=== PATIENT | male | born 1990 | race Caucasian/White ===

== ENCOUNTER 2017-05-16 20:37 | Emergency (ER) | payer BC, OTHER ==
[2017-05-16 20:45] VITALS: BP 148/75; PULSE 99; RESP 17; TEMP 97.7
--- NOTE | 2017-05-16 20:55 | ED ---
General Adult HPI - General Chief complaint: Skin/Abscess/Foreign Body Stated complaint: poss infection from tattoo Time Seen by Provider: 05/16/17 20:46 Source: patient, RN notes reviewed Mode of arrival: ambulatory Limitations: no limitations - History of Present Illness Initial comments: Patient was 26-year-old male who presents emergency room today with a chief complaint of infection to the left upper arm. He does admit that a serious few small white head spots to area around tattoo that he recently got. Patient states that one of the areas to drain on its own. He sister locally tender and painful. Denies temperature associated symptoms. Patient denies any recent fever, chills, shortness of breath, chest pain, back pain, abdominal pain, nausea or vomiting, numbness or tingling, dysuria or hematuria, constipation or diarrhea, headaches or visual changes, or any other complaints. - Related Data Home Medications Medication Instructions Recorded Confirmed Hydrocodone/Acetaminophen [[place] 1 tab PO BID PRN 07/26/15 11/19/15 7.5-325] Ibuprofen [Motrin] 800 mg PO TID PRN 07/26/15 11/19/15 Lurasidone HCl [Latuda] 1 tab PO DAILY 11/19/15 11/19/15 Previous Rx's Medication Instructions Recorded Clindamycin [Cleocin] 150 mg PO Q6H #28 capsule 11/19/15 Sulfamethox-Tmp 800-160Mg [Bactrim 2 each PO Q12HR #28 tab 11/19/15 Ds] Bacitracin Oint 28.4 gm TOPICAL BID #1 tube 05/16/17 Sulfamethox-Tmp 800-160Mg [Bactrim 1 tab PO Q12HR #20 tab 05/16/17 DS 800-160 mg] Allergies Allergy/AdvReac Type Severity Reaction Status Date / Time No Known Allergies Allergy Verified 11/22/15 14:15 Review of Systems ROS Statement: Those systems with pertinent positive or pertinent negative responses have been documented in the HPI. ROS Other: All systems not noted in ROS Statement are negative. Past Medical History Past Medical History: Asthma, GERD/Reflux History of Any Multi-Drug Resistant Organisms: MRSA Date of last positivie culture/infection: 11/19/15 MDRO Source:: right axilla Past Surgical History: Orthopedic Surgery Additional Past Surgical History / Comment(s): RIGHT KNEE Past Psychological History: Anxiety, Bipolar, Depression Smoking Status: Current every day smoker Past Alcohol Use History: None Reported Past Drug Use History: None Reported General Exam - General Exam Comments Initial Comments: General: The patient is awake and alert, in no distress, and does not appear acutely ill. Eye: Pupils are equal, round and reactive to light, extra-ocular movements are intact. No nystagmus. There is normal conjunctiva bilaterally. No signs of icterus. Ears, nose, mouth and throat: There are moist mucous membranes and no oral lesions. Neck: The neck is supple, there is no tenderness or JVD. Cardiovascular: There is a regular rate and rhythm. No murmur, rub or gallop is appreciated. Respiratory: Lungs are clear to auscultation, respirations are non-labored, breath sounds are equal. No wheezes, stridor, rales, or rhonchi. Musculoskeletal: Normal ROM, no tenderness. Strength 5/5. Sensation intact. Pulses equal bilaterally 2+. Neurological: A&O x 3. CN II-XII intact, There are no obvious motor or sensory deficits. Coordination appears grossly intact. Speech is normal. Skin: He does have 4 small abscesses to the left outer arm. There are white heads centrally. No fluctuant area. Each measuring approximately 1-2 cm. Psychiatric: Cooperative, appropriate mood & affect, normal judgment. Limitations: no limitations Course Vital Signs 05/16/17 20:41 Temperature 97.7 F Pulse Rate 99 Respiratory 17 Rate Blood Pressure 148/75 O2 Sat by Pulse 99 Oximetry Medical Decision Making - Medical Decision Making Patient will be started on antibiotics. Patient will be discharged home advised to return if symptoms increase or worsen. Disposition Clinical Impression: Abscess Disposition: HOME SELF-CARE Condition: Good Instructions: Abscess (ED) Additional Instructions: Please use medication as discussed. Please follow-up with family doctor in the next 2 days of symptoms have not improved. Please return to emergency room if the symptoms increase or worsen or for any other concerns. Prescriptions: Bacitracin Oint 28.4 gm TOPICAL BID #1 tube Sulfamethox-Tmp 800-160Mg [Bactrim DS 800-160 mg] 1 tab PO Q12HR #20 tab Referrals: Moises Fierro DO [Primary Care Provider] - 1-2 days Time of Disposition: 20:53
== END 2017-05-16 21:11 | disposition home or self-care (01) ==
LOC: EC 20:37
DX: L02.414 Cutaneous abscess of left upper limb (principal); F31.9 Bipolar disorder, unspecified; F41.9 Anxiety disorder, unspecified; F17.200 Nicotine dependence, unspecified, uncomplicated; Z86.14 Personal history of Methicillin resistant Staphylococcus aureus infection; Z79.899 Other long term (current) drug therapy
CPT/HCPCS: 99282

== ENCOUNTER 2017-05-21 09:24 | Day surgery (SDC) | payer BC, OTHER ==
[2017-05-17 11:11] VITALS: BMI 39.5
[~2017-05-21 09:24] MED LIST: LACTATED RINGERS 1,000 ML IV SCH
[2017-05-21 10:05] VITALS: RESP 16; TEMP 98
[2017-05-21] MEDS ORDERED: LIDOCAINE 1% 20 ML VIAL (10MG/ML) FOR IV START INTRADERMA ONE (10:12)
[2017-05-21] MEDS ORDERED: fentaNYL (PF) 50 MCG/ML 2 ML AMP ONE (11:19)
[2017-05-21] MEDS ORDERED: PROPOFOL 10 MG/ML 20 ML VIAL IV ONE (11:19)
[2017-05-21] MEDS ORDERED: LIDOCAINE 1% INJ 10MG/ML (20 ML MDV) ONE (11:19)
[2017-05-21] MEDS ORDERED: MIDAZOLAM 2 MG/2 ML VIAL ONE (11:19)
--- NOTE | 2017-05-21 12:12 | P.PCN ---
Date of Procedure: 05/21/17 Procedure(s) Performed: Procedure: 1. Esophagogastroduodenoscopy and biopsy. 2. Total colonoscopy and biopsy. Preoperative diagnosis: Epigastric pain and change in bowel habits. Postoperative diagnosis: 1. Very small sliding hiatal hernia with low-grade distal esophagitis. 2. Mild antral gastritis. 3. Normal colon and terminal ileum. 4. Biopsies obtained from the duodenum, antrum, esophagus as well as the terminal ileum and random colon. Preparation: HalfLytely prep. Sedation: Was provided by anesthesia. Brief clinical history: The patient is a 26-year-old male who is scheduled for this evaluation because of epigastric pain and change in bowel habits over the last year or 2. This evaluation is to assess for inflammatory bowel disease or celiac disease or other pathology Procedure: With the patient on his left lateral decubitus position and after informed consent and adequate sedation, I passed the Olympus-GIF 160 video upper endoscope through cricopharyngeus down the esophagus. GE junction was around 39-40 cm from the incisors and there was a small sliding hiatal hernia. There was a very short superficial distal esophageal erosion terminating at the GE junction, with no ulcers or strictures or any evidence of Flores's esophagus. The endoscope was then passed into the stomach which was insufflated with air and inspected in detail including the retroflex view in the cardia. There was some mottling and erythema in the antrum but no ulcers or erosions. Pyloric channel, duodenal bulb, post bulbar area and descending duodenum appeared within normal limits. I obtained biopsies from the antrum and the esophagus then the endoscope was withdrawn and I then proceeded to do colonoscopy. Perianal area did not show any fissures or fistulas. There were no masses felt on digital rectal examination. The Olympus CFQ 160L video colonoscope was then inserted in the rectum in the usual fashion and advanced to the cecum. I intubated the ileocecal valve and examined the terminal ileum. Terminal ileum and colon appeared healthy with no edema, erythema, friability, ulceration, exudation or spontaneous bleeding. No polyps or diverticular disease was noted. I obtained biopsies from the terminal ileum and randomly from the colon then I retroflexed the endoscope in the rectum before the endoscope was withdrawn. The patient tolerated the procedure well. Plan: The patient was reassured. Will await pathology results. I see no follow -up in the office of keep you updated on his progress.
[2017-05-21 12:36] VITALS: BP 110/73; PULSE 58
== END 2017-05-21 12:56 | disposition home or self-care (01) ==
LOC: ORWHC2ENDO 09:24
DX: K44.9 Diaphragmatic hernia without obstruction or gangrene (principal); R19.4 Change in bowel habit; K21.0 Gastro-esophageal reflux disease with esophagitis; F17.210 Nicotine dependence, cigarettes, uncomplicated; Z79.2 Long term (current) use of antibiotics
CPT/HCPCS: 88305; 88342; 45380; 43239; J2250; J2001; J3010; J2704

== ENCOUNTER 2019-01-15 02:41 | Emergency (ER) | payer OTHER ==
[2019-01-15] MEDS ORDERED: KETOROLAC 30 MG/ML 1 ML VIAL IVP STA (03:33)
[2019-01-15] MEDS ORDERED: MORPHINE SULFATE 4 MG/ML SYRINGE IV STA (03:33)
[2019-01-15 03:54] VITALS: TEMP 97.6
[2019-01-15 04:09] LABS: Basophils # (A) 0.3 k/uL (0-0.2); Basophils % (A) 3 %; Eosinophils # (A) 0.2 k/uL (0-0.7); Eosinophils % (A) 2 %; HCT 44.5 % (39.0-53.0); HGB 14.9 gm/dL (13.0-17.5); Lymphocytes % (A) 24 %; MCH 29.1 pg (25.0-35.0); MCHC 33.4 g/dL (31.0-37.0); MCV 87.2 fL (80.0-100.0); Mean Platelet Volume 7.3; Monocytes # (A) 0.7 k/uL (0-1.0); Monocytes % (A) 6 %; Neutrophils # (A) 7.9 k/uL (1.3-7.7); Neutrophils % (A) 64 %; Platelet Count 291 k/uL (150-450); RDW 13.7 % (11.5-15.5); WBC 12.2 k/uL (3.8-10.6)
[2019-01-15 04:21] LABS: African American GFR (CKD) >90 (>60 ml/min/1.73 sqM); Amylase 45 U/L (30-110); Anion Gap 8 mmol/L; Blood Urea Nitrogen 15 mg/dL (9-20); C Reactive Protein 5.8 mg/L (<10.0); Calcium 9.1 mg/dL (8.4-10.2); Carbon Dioxide 28 mmol/L (22-30); Chloride 103 mmol/L (98-107); Glucose 125 mg/dL (74-99); Potassium 4.5 mmol/L (3.5-5.1); Sodium 139 mmol/L (137-145)
--- NOTE | 2019-01-15 04:37 | XR ---
EXAM: XR Right Shoulder Complete, 2 or More Views CLINICAL HISTORY: ITS.REASON XR Reason: pain TECHNIQUE: Two or more views of the right shoulder. COMPARISON: No relevant prior studies available. FINDINGS: Bones/joints: No acute fracture. No dislocation. Soft tissues: Unremarkable. IMPRESSION: No acute findings.
--- NOTE | 2019-01-15 04:46 | XR ---
EXAM: XR Chest, 2 Views CLINICAL HISTORY: ITS.REASON XR Reason: pain TECHNIQUE: Frontal and lateral views of the chest. COMPARISON: No relevant prior studies available. FINDINGS: Lungs: No consolidation or mass. Pleural space: No effusion. Heart: No cardiomegaly. Mediastinum: Unremarkable. Bones/joints: No acute findings. IMPRESSION: No acute cardiopulmonary process.
--- NOTE | 2019-01-15 04:54 | ED ---
Extremity Problem HPI - General Chief complaint: Extremity Problem,Nontraumatic Stated complaint: Arm Numbness Time Seen by Provider: 01/15/19 03:05 Source: patient Mode of arrival: ambulatory Limitations: no limitations - History of Present Illness Initial comments: This patient is 28-year-old man who presents with 2 distinct complaints. The first complaint is of some right trapezius area pain. He states the pain is been there for number days and does not seem to be getting better . he is not recall having any injury to the area. The patient denies fever or chills. There is no shortness of breath. No cough or hemoptysis. No real neck pain. No neck stiffness. The patient states the pain gets worse when he uses his right arm, and is better when he is resting it. Patient's second complaint is of some right sided dental pain. He notes that it is worse when he tries to chew something. It is aching, constant, without relieving factors. No difficulty with speech or swallowing. No eye or sinus pain MD Complaint: extremity pain, other (Dental pain) -: days(s) Location: right, upper extremity History of Same: No -: Yes myalgia Radiation: none Quality: aching Consistency: constant Improves with: nothing Worsens with: other (Movement) Associated Symptoms: denies other symptoms - Related Data Previous Rx's Medication Instructions Recorded Bacitracin Oint 28.4 gm TOPICAL BID #1 tube 05/16/17 Sulfamethox-Tmp 800-160Mg [Bactrim 1 tab PO Q12HR #20 tab 05/16/17 DS 800-160 mg] Ibuprofen 800 mg PO TID #20 tablet 01/15/19 Methocarbamol [Robaxin-750] 750 mg PO TID PRN #30 tablet 01/15/19 Penicillin V Potassium [Pen Vee K] 500 mg PO Q6H #28 tablet 01/15/19 Allergies Allergy/AdvReac Type Severity Reaction Status Date / Time No Known Allergies Allergy Verified 11/22/17 16:10 Review of Systems ROS Statement: Those systems with pertinent positive or pertinent negative responses have been documented in the HPI. ROS Other: All systems not noted in ROS Statement are negative. Constitutional: Denies: fever, chills, weakness Eyes: Denies: eye pain, vision change ENT: Reports: dental pain. Denies: ear pain, throat pain, congestion Respiratory: Denies: cough, dyspnea Cardiovascular: Denies: chest pain, palpitations, edema Gastrointestinal: Denies: abdominal pain, nausea, vomiting Musculoskeletal: Reports: myalgia. Denies: back pain Skin: Denies: rash Neurological: Denies: headache, weakness, numbness, paresthesias Past Medical History Past Medical History: Asthma, GERD/Reflux History of Any Multi-Drug Resistant Organisms: MRSA Date of last positivie culture/infection: 11/19/15 MDRO Source:: right axilla Past Surgical History: Adenoidectomy, Orthopedic Surgery, Tonsillectomy Additional Past Surgical History / Comment(s): RIGHT KNEE Past Psychological History: Anxiety, Bipolar, Depression Smoking Status: Never smoker Past Alcohol Use History: Occasional Past Drug Use History: None Reported General Exam Limitations: no limitations General appearance: alert, in no apparent distress Head exam: Present: atraumatic, normocephalic Eye exam: Present: normal appearance. Absent: scleral icterus, conjunctival injection ENT exam: Present: mucous membranes moist, other (Patient has impacted wisdom tooth.) Neck exam: Present: normal inspection, full ROM Respiratory exam: Present: normal lung sounds bilaterally. Absent: respiratory distress, wheezes, rales, rhonchi, stridor Cardiovascular Exam: Present: regular rate, normal rhythm, normal heart sounds. Absent: systolic murmur, diastolic murmur, rubs, gallop GI/Abdominal exam: Present: soft. Absent: distended, tenderness, guarding, rebound, rigid, mass Back exam: Present: normal inspection, tenderness (Right trapezius muscle), muscle spasm (Right trapezius muscle). Absent: CVA tenderness (R), CVA tenderness (L) Neurological exam: Present: alert, oriented X3. Absent: motor sensory deficit Skin exam: Present: warm, dry, intact, normal color. Absent: rash Course Vital Signs 01/15/19 01/15/19 02:49 05:12 Temperature 97.6 F Pulse Rate 92 78 Respiratory 18 16 Rate Blood Pressure 163/106 142/84 O2 Sat by Pulse 100 98 Oximetry Medical Decision Making - Lab Data Result diagrams: 01/15/19 04:00 01/15/19 04:00 Lab Results 01/15/19 01/15/19 01/15/19 Range/Units 04:00 04:00 04:00 WBC 12.2 H (3.8-10.6) k/uL RBC 5.10 (4.30-5.90) m/uL Hgb 14.9 (13.0-17.5) gm/dL Hct 44.5 (39.0-53.0) % MCV 87.2 (80.0-100.0) fL MCH 29.1 (25.0-35.0) pg MCHC 33.4 (31.0-37.0) g/dL RDW 13.7 (11.5-15.5) % Plt Count 291 (150-450) k/uL Neutrophils % 64 % Lymphocytes % 24 % Monocytes % 6 % Eosinophils % 2 % Basophils % 3 % Neutrophils # 7.9 H (1.3-7.7) k/uL Lymphocytes # 3.0 (1.0-4.8) k/uL Monocytes # 0.7 (0-1.0) k/uL Eosinophils # 0.2 (0-0.7) k/uL Basophils # 0.3 H (0-0.2) k/uL D-Dimer 0.26 (<0.60) mg/L FEU Sodium 139 (137-145) mmol/L Potassium 4.5 (3.5-5.1) mmol/L Chloride 103 (98-107) mmol/L Carbon Dioxide 28 (22-30) mmol/L Anion Gap 8 mmol/L BUN 15 (9-20) mg/dL Creatinine 0.75 (0.66-1.25) mg/dL Est GFR (CKD-EPI)AfAm >90 (>60 ml/min/1.73 sqM) Est GFR (CKD-EPI)NonAf >90 (>60 ml/min/1.73 sqM) Glucose 125 H (74-99) mg/dL Calcium 9.1 (8.4-10.2) mg/dL C-Reactive Protein 5.8 (<10.0) mg/L Amylase 45 (30-110) U/L Lipase 78 (23-300) U/L Disposition Clinical Impression: Strain of shoulder, right, Impacted tooth Disposition: HOME SELF-CARE Condition: Good Instructions (If sedation given, give patient instructions): Muscle Strain (ED), Toothache (ED) Prescriptions: Ibuprofen 800 mg PO TID #20 tablet Penicillin V Potassium [Pen Vee K] 500 mg PO Q6H #28 tablet Methocarbamol [Robaxin-750] 750 mg PO TID PRN #30 tablet PRN Reason: pain Is patient prescribed a controlled substance at d/c from ED?: No Referrals: Moises Fierro DO [Primary Care Provider] - 1-2 days
[2019-01-15 05:13] VITALS: BP 142/84; PULSE 78; RESP 16
== END 2019-01-15 05:13 | disposition home or self-care (01) ==
LOC: EC 02:41
DX: S46.811A Strain of other muscles, fascia and tendons at shoulder and upper arm level, right arm, initial encounter (principal); K01.1 Impacted teeth; Z86.14 Personal history of Methicillin resistant Staphylococcus aureus infection
CPT/HCPCS: 36415; 85379; 80048; 82150; 83690; 85025; 86140; 73030; 71046; 99284; 96374; J2270

== ENCOUNTER 2019-04-11 13:22 | Emergency (ER) | payer BC ==
[2019-04-11 13:26] VITALS: TEMP 97.5
[2019-04-11] MEDS ORDERED: SODIUM CHLORIDE 0.9% 1,000 ML IV STA (14:54)
[2019-04-11] MEDS ORDERED: KETOROLAC 30 MG/ML 1 ML VIAL IVP STA (14:54)
--- NOTE | 2019-04-11 15:09 | ED ---
Abdominal Pain HPI - General Chief Complaint: Abdominal Pain Stated Complaint: Back and right side pain Time Seen by Provider: 04/11/19 14:25 Source: patient Mode of arrival: ambulatory Limitations: no limitations - History of Present Illness Initial Comments: Patient is a 28-year-old male presenting to the emergency Department with complaints of right upper quadrant pain has been intermittent for the past week. Patient states he noticed this approximately 5 days ago. Patient describes the pain as coming and going, seems to be worse in the morning. He describes it as sharp at times with some radiation into his back. Patient denies fever, chills, vomiting. Patient admits to mild nausea at times. Patient also has diarrhea intermittently however he states he has had this for months. The past 24 hours the pain has increased. Patient has tried any [id number] pain medicines. Patient denies any abdominal surgeries. Patient has no urinary complaints, last bowel movement was today and has been normal. There are no other complaints at this time. Upon arrival to the ER, vital signs are stable. - Related Data Previous Rx's Medication Instructions Recorded Bacitracin Oint 28.4 gm TOPICAL BID #1 tube 05/16/17 Sulfamethox-Tmp 800-160Mg [Bactrim 1 tab PO Q12HR #20 tab 05/16/17 DS 800-160 mg] Ibuprofen 800 mg PO TID #20 tablet 01/15/19 Methocarbamol [Robaxin-750] 750 mg PO TID PRN #30 tablet 01/15/19 Penicillin V Potassium [Pen Vee K] 500 mg PO Q6H #28 tablet 01/15/19 Allergies Allergy/AdvReac Type Severity Reaction Status Date / Time No Known Allergies Allergy Verified 11/22/17 16:10 Review of Systems ROS Statement: Those systems with pertinent positive or pertinent negative responses have been documented in the HPI. ROS Other: All systems not noted in ROS Statement are negative. Past Medical History Past Medical History: Asthma, GERD/Reflux History of Any Multi-Drug Resistant Organisms: MRSA Date of last positivie culture/infection: 11/19/15 MDRO Source:: right axilla Past Surgical History: Adenoidectomy, Orthopedic Surgery, Tonsillectomy Additional Past Surgical History / Comment(s): RIGHT KNEE Past Psychological History: Anxiety, Bipolar, Depression Smoking Status: Former smoker Past Alcohol Use History: Occasional Past Drug Use History: None Reported General Exam - General Exam Comments Initial Comments: GENERAL: Well-appearing, well-nourished and in no acute distress. HEAD: Atraumatic, normocephalic. EYES: Pupils equal round and reactive to light, extraocular movements intact, sclera anicteric, conjunctiva are normal. ENT: TMs normal, nares patent, oropharynx clear without exudates. Moist mucous membranes. NECK: Normal range of motion, supple without lymphadenopathy or JVD. LUNGS: Breath sounds clear to auscultation bilaterally and equal. No wheezes rales or rhonchi. HEART: Regular rate and rhythm without murmurs, rubs or gallops. ABDOMEN: Tender to palpation in the right upper quadrant. Soft, normoactive bowel sounds. No guarding, no rebound. No masses appreciated. No flank pain. : Deferred EXTREMITIES: Normal range of motion, no pitting or edema. No clubbing or cyanosis. NEUROLOGICAL: Cranial nerves II through XII grossly intact. Normal speech, normal gait. PSYCH: Normal mood, normal affect. SKIN: Warm, Dry, normal turgor, no rashes or lesions noted. Limitations: no limitations Course Vital Signs 04/11/19 04/11/19 13:24 16:34 Temperature 97.5 F L Pulse Rate 77 72 Respiratory 16 18 Rate Blood Pressure 141/83 114/74 O2 Sat by Pulse 95 99 Oximetry Medical Decision Making - Medical Decision Making Patient is a 28-year-old male presenting with right upper quadrant pain intermittently, for approximately 5 days. Vital signs are stable, afebrile. La bs show slight leukocytosis at 16.1, rest of labs are normal. Lactic acid is 1.2. Urine is normal. Gallbladder ultrasound reveals no gallstones or dilated ducts. Borderline gallbladder wall thickening. No free fluid. Chest x-ray reveals no acute abnormalities. Patient was given fluids and Toradol and reports improvement in symptoms. I discussed with patient that his symptoms could be coming from his gallbladder and recommended outpatient follow-up. Patient is in agreement with this plan of care. Patient admits to eating fatty foods, including whole pizza yesterday. We discussed limiting his fat intake and patient will follow up with his PCP. Patient is stable for discharge at thi s time. He is in agreement with this plan of care. Return parameters were discussed with the patient and he verbalized understanding. - Lab Data Result diagrams: 04/11/19 15:15 04/11/19 15:15 Lab Results 04/11/19 04/11/19 04/11/19 Range/Units 15:15 15:15 15:15 WBC 16.1 H (3.8-10.6) k/uL RBC 5.11 (4.30-5.90) m/uL Hgb 15.3 (13.0-17.5) gm/dL Hct 45.4 (39.0-53.0) % MCV 89.0 (80.0-100.0) fL MCH 30.0 (25.0-35.0) pg MCHC 33.7 (31.0-37.0) g/dL RDW 12.9 (11.5-15.5) % Plt Count 324 (150-450) k/uL Neutrophils % 72 % Lymphocytes % 22 % Monocytes % 4 % Eosinophils % 1 % Basophils % 0 % Neutrophils # 11.7 H (1.3-7.7) k/uL Lymphocytes # 3.5 (1.0-4.8) k/uL Monocytes # 0.7 (0-1.0) k/uL Eosinophils # 0.1 (0-0.7) k/uL Basophils # 0.0 (0-0.2) k/uL PT (9.0-12.0) sec INR (<1.2) APTT (22.0-30.0) sec Sodium 138 (137-145) mmol/L Potassium 4.1 (3.5-5.1) mmol/L Chloride 102 (98-107) mmol/L Carbon Dioxide 29 (22-30) mmol/L Anion Gap 7 mmol/L BUN 15 (9-20) mg/dL Creatinine 0.71 (0.66-1.25) mg/dL Est GFR (CKD-EPI)AfAm >90 (>60 ml/min/1.73 sqM) Est GFR (CKD-EPI)NonAf >90 (>60 ml/min/1.73 sqM) Glucose 104 H (74-99) mg/dL Plasma Lactic Acid [place] (0.7-2.0) mmol/L Calcium 9.1 (8.4-10.2) mg/dL Total Bilirubin 0.4 (0.2-1.3) mg/dL AST 18 (17-59) U/L ALT 27 (21-72) U/L Alkaline Phosphatase 80 (38-126) U/L Total Protein 6.9 (6.3-8.2) g/dL Albumin 4.2 (3.5-5.0) g/dL Amylase 41 (30-110) U/L Lipase 90 (23-300) U/L Urine Color Yellow Urine Appearance Clear (Clear) Urine pH 5.5 (5.0-8.0) Ur Specific [place] 1.031 (1.001-1.035) Urine Protein Trace H (Negative) Urine Glucose (UA) Negative (Negative) Urine Ketones Negative (Negative) Urine Blood Negative (Negative) Urine Nitrite Negative (Negative) Urine Bilirubin Negative (Negative) Urine Urobilinogen 2.0 (<2.0) mg/dL Ur Leukocyte Esterase Negative (Negative) 04/11/19 04/11/19 Range/Units 15:15 15:15 WBC (3.8-10.6) k/uL RBC (4.30-5.90) m/uL Hgb (13.0-17.5) gm/dL Hct (39.0-53.0) % MCV (80.0-100.0) fL MCH (25.0-35.0) pg MCHC (31.0-37.0) g/dL RDW (11.5-15.5) % Plt Count (150-450) k/uL Neutrophils % % Lymphocytes % % Monocytes % % Eosinophils % % Basophils % % Neutrophils # (1.3-7.7) k/uL Lymphocytes # (1.0-4.8) k/uL Monocytes # (0-1.0) k/uL Eosinophils # (0-0.7) k/uL Basophils # (0-0.2) k/uL PT 11.3 (9.0-12.0) sec INR 1.1 (<1.2) APTT 24.7 (22.0-30.0) sec Sodium (137-145) mmol/L Potassium (3.5-5.1) mmol/L Chloride (98-107) mmol/L Carbon Dioxide (22-30) mmol/L Anion Gap mmol/L BUN (9-20) mg/dL Creatinine (0.66-1.25) mg/dL Est GFR (CKD-EPI)AfAm (>60 ml/min/1.73 sqM) Est GFR (CKD-EPI)NonAf (>60 ml/min/1.73 sqM) Glucose (74-99) mg/dL Plasma Lactic Acid [place] 1.2 (0.7-2.0) mmol/L Calcium (8.4-10.2) mg/dL Total Bilirubin (0.2-1.3) mg/dL AST (17-59) U/L ALT (21-72) U/L Alkaline Phosphatase (38-126) U/L Total Protein (6.3-8.2) g/dL Albumin (3.5-5.0) g/dL Amylase (30-110) U/L Lipase (23-300) U/L Urine Color Urine Appearance (Clear) Urine pH (5.0-8.0) Ur Specific [place] (1.001-1.035) Urine Protein (Negative) Urine Glucose (UA) (Negative) Urine Ketones (Negative) Urine Blood (Negative) Urine Nitrite (Negative) Urine Bilirubin (Negative) Urine Urobilinogen (<2.0) mg/dL Ur Leukocyte Esterase (Negative) Disposition Clinical Impression: Abdominal pain Disposition: HOME SELF-CARE Condition: Stable Instructions (If sedation given, give patient instructions): Abdominal Pain (ED) Additional Instructions: Please return to the Emergency Department if symptoms worsen or any other concerns. Follow-up with PCP as discussed. May alternate between Tylenol and Motrin for discomfort. Follow a BRAT diet. Is patient prescribed a controlled substance at d/c from ED?: No Referrals: Moises Fierro DO [Primary Care Provider] - 1-2 days
[2019-04-11 15:31] LABS: Appearance,Urine Clear (Clear); Bilirubin,Urine Negative (Negative); Blood,Urine Negative (Negative); Color,Urine Yellow; Glucose,Urine (UA) Negative (Negative); Ketones,Urine Negative (Negative); Leukocyte Esterase,Urine Negative (Negative); Nitrite,Urine Negative (Negative); PH, Urine 5.5 (5.0-8.0); Protein,Urine Trace (Negative); Specific Gravity,Urine 1.031 (1.001-1.035)
[2019-04-11 15:33] LABS: Basophils % (A) 0 %; Eosinophils # (A) 0.1 k/uL (0-0.7); Eosinophils % (A) 1 %; HCT 45.4 % (39.0-53.0); HGB 15.3 gm/dL (13.0-17.5); Lymphocytes # (A) 3.5 k/uL (1.0-4.8); Lymphocytes % (A) 22 %; MCHC 33.7 g/dL (31.0-37.0); Mean Platelet Volume 8.3; Monocytes # (A) 0.7 k/uL (0-1.0); Monocytes % (A) 4 %; Neutrophils # (A) 11.7 k/uL (1.3-7.7); Neutrophils % (A) 72 %; Platelet Count 324 k/uL (150-450); RBC 5.11 m/uL (4.30-5.90); RDW 12.9 % (11.5-15.5); WBC 16.1 k/uL (3.8-10.6)
[2019-04-11 15:43] LABS: INR 1.1 (<1.2); Partial Thromboplastin Time 24.7 sec (22.0-30.0); Prothrombin Time 11.3 sec (9.0-12.0)
[2019-04-11 16:03] LABS: ALT 27 U/L (21-72); AST 18 U/L (17-59); African American GFR (CKD) >90 (>60 ml/min/1.73 sqM); Albumin 4.2 g/dL (3.5-5.0); Alkaline Phosphatase 80 U/L (38-126); Amylase 41 U/L (30-110); Anion Gap 7 mmol/L; Blood Urea Nitrogen 15 mg/dL (9-20); Calcium 9.1 mg/dL (8.4-10.2); Carbon Dioxide 29 mmol/L (22-30); Chloride 102 mmol/L (98-107); Glucose 104 mg/dL (74-99); Non-African American GFR(CKD) >90 (>60 ml/min/1.73 sqM); Potassium 4.1 mmol/L (3.5-5.1); Sodium 138 mmol/L (137-145); Total Bilirubin 0.4 mg/dL (0.2-1.3); Total Protein 6.9 g/dL (6.3-8.2)
[2019-04-11 16:35] VITALS: BP 114/74; PULSE 72; RESP 18
--- NOTE | 2019-04-11 16:36 | US ---
EXAMINATION TYPE: US gallbladder DATE OF EXAM: 04/11/2019 COMPARISON: NONE CLINICAL HISTORY: RUQ pain. RUQ pain and epigastric pain for 1 week EXAM MEASUREMENTS: Liver Length: 14.5 cm Gallbladder Wall: 0.2 cm CBD: 0.3 cm Right Kidney: 11.7 x 5.6 x 5.4 cm Technical limitations due to patient's body habitus and large amount of overlying bowel content Pancreas: Obscured by bowel gas Liver: attenuating, heterogeneous Gallbladder: no evidence of stones Evidence for sonographic Garcia's sign: no CBD: limited evaluation Right Kidney: no evidence of hydronephrosis IMPRESSION: No gallstones or dilated ducts. Borderline gallbladder wall thickening. No free fluid.
--- NOTE | 2019-04-11 17:20 | XR ---
EXAMINATION TYPE: XR chest 2V DATE OF EXAM: 04/11/2019 COMPARISON: 01/15/2019 HISTORY: Right upper quadrant pain TECHNIQUE: Frontal and lateral views of the chest are obtained. FINDINGS: Heart and mediastinum are normal. Lungs are clear. Diaphragm is normal. Bony thorax appear s normal. IMPRESSION: Normal chest. No change.
== END 2019-04-11 18:15 | disposition home or self-care (01) ==
LOC: EC 13:22
DX: R10.11 Right upper quadrant pain (principal); D72.829 Elevated white blood cell count, unspecified; K82.8 Other specified diseases of gallbladder; M54.9 Dorsalgia, unspecified; R11.0 Nausea; R19.7 Diarrhea, unspecified; Z87.891 Personal history of nicotine dependence; Z86.14 Personal history of Methicillin resistant Staphylococcus aureus infection; Z87.19 Personal history of other diseases of the digestive system
CPT/HCPCS: 36415; 80053; 82150; 83605; 83690; 85025; 85610; 85730; 81003; 71046; 76705; 99284; 96374; 96361 ×2; J1885

== ENCOUNTER → 2020-02-13 | Outpatient (CLI) | payer BC | END | disposition home or self-care (01) | LOC: LABWHC1 09:55 | PROVIDERS: ATTEND Family Medicine | DX: Z20.828 Contact with and (suspected) exposure to other viral communicable diseases (principal) | CPT/HCPCS: U0003; C9803 ==

== ENCOUNTER 2021-01-25 19:46 | Emergency (ER) | payer BC ==
[2021-01-25 20:10] VITALS: TEMP 98.4
[2021-01-25] MEDS ORDERED: SODIUM CHLORIDE 0.9% 1,000 ML IV STA (20:20)
[2021-01-25] MEDS ORDERED: KETOROLAC 15 MG/ML 1 ML VIAL IVP STA (20:20)
[2021-01-25] MEDS ORDERED: HYDROmorphone 0.5 MG/0.5 ML SYRINGE IVP STA (20:20)
[2021-01-25] MEDS ORDERED: ONDANSETRON 4 MG/2 ML VIAL IVP STA ×2 (20:20→22:53)
[2021-01-25] MEDS ORDERED: SODIUM CHLORIDE 0.9% 500 ML 500 ML IV STA (20:20)
--- NOTE | 2021-01-25 20:29 | ED ---
Abdominal Pain HPI - General Chief Complaint: Abdominal Pain Stated Complaint: Groin Pain Time Seen by Provider: 01/25/21 20:16 Source: patient, RN notes reviewed Mode of arrival: ambulatory Limitations: no limitations - History of Present Illness Initial Comments: This a 30-year-old male presents emergency Department chief complaint of left lower quadrant abdominal pain. Patient states started a few days ago. He does radiate to his left back. Patient denies any vomiting states she's had slight nausea no diarrhea no constipation no definite dysuria or urinary frequency. Patient has no history kidney stones OR diverticulitis no prior abdominal surgeries no fevers. - Related Data Previous Rx's Medication Instructions Recorded Bacitracin Zinc Oint 28.4 gm TOPICAL BID #1 tube 05/16/17 Sulfamethox-Tmp 800-160Mg [Bactrim 1 tab PO Q12HR #20 tab 05/16/17 DS 800-160 mg] Ibuprofen 800 mg PO TID #20 tablet 01/15/19 Methocarbamol [Robaxin-750] 750 mg PO TID PRN #30 tablet 01/15/19 Penicillin V Potassium [Pen Vee K] 500 mg PO Q6H #28 tablet 01/15/19 Amoxicillin/Potassium Clav 1 tab PO Q12HR #20 tab 01/25/21 [Augmentin 875-125 Tablet] Allergies Allergy/AdvReac Type Severity Reaction Status Date / Time No Known Allergies Allergy Verified 01/25/21 20:10 Review of Systems ROS Statement: Those systems with pertinent positive or pertinent negative responses have been documented in the HPI. ROS Other: All systems not noted in ROS Statement are negative. Past Medical History Past Medical History: Asthma, GERD/Reflux History of Any Multi-Drug Resistant Organisms: MRSA Date of last positivie culture/infection: 11/19/15 MDRO Source:: right axilla Past Surgical History: Adenoidectomy, Orthopedic Surgery, Tonsillectomy Additional Past Surgical History / Comment(s): RIGHT KNEE Past Psychological History: Anxiety, Bipolar, Depression Smoking Status: Vaper Past Alcohol Use History: Occasional Past Drug Use History: None Reported General Exam Limitations: no limitations General appearance: alert, in no apparent distress Head exam: Present: atraumatic, normocephalic, normal inspection Eye exam: Present: normal appearance, PERRL, EOMI. Absent: scleral icterus, conjunctival injection, periorbital swelling ENT exam: Present: normal exam, normal oropharynx, mucous membranes moist Neck exam: Present: normal inspection, full ROM. Absent: tenderness, meningismus, lymphadenopathy Respiratory exam: Present: normal lung sounds bilaterally. Absent: respiratory distress, wheezes, rales, rhonchi, stridor Cardiovascular Exam: Present: regular rate, normal rhythm, normal heart sounds. Absent: systolic murmur, diastolic murmur, rubs, gallop, clicks GI/Abdominal exam: Present: soft, tenderness (Left lower quadrant), normal bowel sounds. Absent: distended, guarding, rebound, rigid Back exam: Present: CVA tenderness (L). Absent: CVA tenderness (R) Neurological exam: Present: alert, oriented X3 Course Vital Signs 01/25/21 20:05 Temperature 98.4 F Pulse Rate 84 Respiratory 20 Rate Blood Pressure 125/88 O2 Sat by Pulse 99 Oximetry Medical Decision Making - Medical Decision Making CT shows evidence of diverticulitis. Patient we discharged on clear liquid diet, Augmentin return parameters were discussed. - Lab Data Result diagrams: 01/25/21 20:25 01/25/21 20:25 Lab Results 01/25/21 01/25/21 01/25/21 Range/Units 20:25 20:25 20:25 WBC 12.3 H (3.8-10.6) k/uL RBC 5.17 (4.30-5.90) m/uL Hgb 15.3 (13.0-17.5) gm/dL Hct 46.3 (39.0-53.0) % MCV 89.6 (80.0-100.0) fL MCH 29.5 (25.0-35.0) pg MCHC 33.0 (31.0-37.0) g/dL RDW 12.8 (11.5-15.5) % Plt Count 312 (150-450) k/uL MPV 8.4 Neutrophils % 67 % Lymphocytes % 24 % Monocytes % 5 % Eosinophils % 3 % Basophils % 1 % Neutrophils # 8.3 H (1.3-7.7) k/uL Lymphocytes # 2.9 (1.0-4.8) k/uL Monocytes # 0.6 (0-1.0) k/uL Eosinophils # 0.3 (0-0.7) k/uL Basophils # 0.1 (0-0.2) k/uL Sodium 137 (137-145) mmol/L Potassium 4.0 (3.5-5.1) mmol/L Chloride 103 (98-107) mmol/L Carbon Dioxide 27 (22-30) mmol/L Anion Gap 7 mmol/L BUN 11 (9-20) mg/dL Creatinine 0.75 (0.66-1.25) mg/dL Est GFR (CKD-EPI)AfAm >90 (>60 ml/min/1.73 sqM) Est GFR (CKD-EPI)NonAf >90 (>60 ml/min/1.73 sqM) Glucose 91 (74-99) mg/dL Plasma Lactic Acid [place] (0.7-2.0) mmol/L Calcium 9.2 (8.4-10.2) mg/dL Total Bilirubin 0.4 (0.2-1.3) mg/dL AST 25 (17-59) U/L ALT 18 (4-49) U/L Alkaline Phosphatase 88 (38-126) U/L Total Protein 7.0 (6.3-8.2) g/dL Albumin 4.1 (3.5-5.0) g/dL Amylase 43 (30-110) U/L Lipase 97 (23-300) U/L Urine Color Light Yellow Urine Appearance Clear (Clear) Urine pH 6.5 (5.0-8.0) Ur Specific [place] 1.015 (1.001-1.035) Urine Protein Negative (Negative) Urine Glucose (UA) Negative (Negative) Urine Ketones Negative (Negative) Urine Blood Negative (Negative) Urine Nitrite Negative (Negative) Urine Bilirubin Negative (Negative) Urine Urobilinogen <2.0 (<2.0) mg/dL Ur Leukocyte Esterase Small H (Negative) Urine RBC <1 (0-5) /hpf Urine WBC 1 (0-5) /hpf Urine Bacteria Rare H (None) /hpf Urine Mucus Rare H (None) /hpf 01/25/21 Range/Units 20:25 WBC (3.8-10.6) k/uL RBC (4.30-5.90) m/uL Hgb (13.0-17.5) gm/dL Hct (39.0-53.0) % MCV (80.0-100.0) fL MCH (25.0-35.0) pg MCHC (31.0-37.0) g/dL RDW (11.5-15.5) % Plt Count (150-450) k/uL MPV Neutrophils % % Lymphocytes % % Monocytes % % Eosinophils % % Basophils % % Neutrophils # (1.3-7.7) k/uL Lymphocytes # (1.0-4.8) k/uL Monocytes # (0-1.0) k/uL Eosinophils # (0-0.7) k/uL Basophils # (0-0.2) k/uL Sodium (137-145) mmol/L Potassium (3.5-5.1) mmol/L Chloride (98-107) mmol/L Carbon Dioxide (22-30) mmol/L Anion Gap mmol/L BUN (9-20) mg/dL Creatinine (0.66-1.25) mg/dL Est GFR (CKD-EPI)AfAm (>60 ml/min/1.73 sqM) Est GFR (CKD-EPI)NonAf (>60 ml/min/1.73 sqM) Glucose (74-99) mg/dL Plasma Lactic Acid [place] 0.9 (0.7-2.0) mmol/L Calcium (8.4-10.2) mg/dL Total Bilirubin (0.2-1.3) mg/dL AST (17-59) U/L ALT (4-49) U/L Alkaline Phosphatase (38-126) U/L Total Protein (6.3-8.2) g/dL Albumin (3.5-5.0) g/dL Amylase (30-110) U/L Lipase (23-300) U/L Urine Color Urine Appearance (Clear) Urine pH (5.0-8.0) Ur Specific [place] (1.001-1.035) Urine Protein (Negative) Urine Glucose (UA) (Negative) Urine Ketones (Negative) Urine Blood (Negative) Urine Nitrite (Negative) Urine Bilirubin (Negative) Urine Urobilinogen (<2.0) mg/dL Ur Leukocyte Esterase (Negative) Urine RBC (0-5) /hpf Urine WBC (0-5) /hpf Urine Bacteria (None) /hpf Urine Mucus (None) /hpf Disposition Clinical Impression: Diverticulitis Disposition: HOME SELF-CARE Condition: Stable Instructions (If sedation given, give patient instructions): Diverticulitis Diet (ED), Diverticulitis (ED) Additional Instructions: Please return to the Emergency Department if symptoms worsen or any other concerns. Prescriptions: Amoxicillin/Potassium Clav [Augmentin 875-125 Tablet] 1 tab PO Q12HR #20 tab Is patient prescribed a controlled substance at d/c from ED?: No Referrals: Moises Fierro DO [Primary Care Provider] - 1-2 days Time of Disposition: 22:41
[2021-01-25 20:44] LABS: Basophils # (A) 0.1 k/uL (0-0.2); Basophils % (A) 1 %; Eosinophils # (A) 0.3 k/uL (0-0.7); Eosinophils % (A) 3 %; HCT 46.3 % (39.0-53.0); HGB 15.3 gm/dL (13.0-17.5); Lymphocytes # (A) 2.9 k/uL (1.0-4.8); Lymphocytes % (A) 24 %; MCH 29.5 pg (25.0-35.0); MCV 89.6 fL (80.0-100.0); Mean Platelet Volume 8.4; Monocytes # (A) 0.6 k/uL (0-1.0); Monocytes % (A) 5 %; Neutrophils # (A) 8.3 k/uL (1.3-7.7); Neutrophils % (A) 67 %; Platelet Count 312 k/uL (150-450); RBC 5.17 m/uL (4.30-5.90); RDW 12.8 % (11.5-15.5); WBC 12.3 k/uL (3.8-10.6)
[2021-01-25 20:55] LABS: ALT 18 U/L (4-49); AST 25 U/L (17-59); African American GFR (CKD) >90 (>60 ml/min/1.73 sqM); Albumin 4.1 g/dL (3.5-5.0); Alkaline Phosphatase 88 U/L (38-126); Amylase 43 U/L (30-110); Anion Gap 7 mmol/L; Blood Urea Nitrogen 11 mg/dL (9-20); Calcium 9.2 mg/dL (8.4-10.2); Carbon Dioxide 27 mmol/L (22-30); Chloride 103 mmol/L (98-107); Glucose 91 mg/dL (74-99); Lipase 97 U/L (23-300); Non-African American GFR(CKD) >90 (>60 ml/min/1.73 sqM); Sodium 137 mmol/L (137-145); Total Bilirubin 0.4 mg/dL (0.2-1.3)
[2021-01-25 21:23] LABS: Appearance,Urine Clear (Clear); Bacteria,Urine Rare /hpf; Bilirubin,Urine Negative (Negative); Blood,Urine Negative (Negative); Color,Urine Light Yellow; Glucose,Urine (UA) Negative (Negative); Ketones,Urine Negative (Negative); Leukocyte Esterase,Urine Small (Negative); Mucus,Urine Rare /hpf; Nitrite,Urine Negative (Negative); PH, Urine 6.5 (5.0-8.0); Protein,Urine Negative (Negative); RBC,Urine <1 /hpf (0-5); Specific Gravity,Urine 1.015 (1.001-1.035); Urobilinogen,Urine <2.0 mg/dL (<2.0); WBC,Urine 1 /hpf (0-5)
--- NOTE | 2021-01-25 22:36 | CT ---
EXAMINATION TYPE: CT abdomen pelvis w con DATE OF EXAM: 01/25/2021 COMPARISON: None HISTORY: groin pain CT DLP: 2068.9 mGycm Automated exposure control for dose reduction was used. CONTRAST: Performed with IV Contrast, patient injected with 100 mL of Isovue 300. The lung bases are clear. There is no pleural effusion. Heart size is normal. There is no pericardial effusion. Liver spleen pancreas gallbladder stomach appear intact. The bile ducts are not dilated. There is no adrenal mass. Kidneys show satisfactory contrast opacification. There is no hydronephrosi s. Delayed images show normal renal excretion. Ureters are not dilated. There is no retroperitoneal a denopathy. Bladder distends smoothly. There is no inguinal hernia. There is no free fluid in the pelv is. Appendix not clearly seen. There is no sign of thickened appendix. There are some sigmoid diverticula. There is fat stranding on the posterior aspect of the mid sigmoid colon. The lumbar vertebra have normal alignment. Posterior elements are intact. There is no compression fra cture. Bony pelvis is intact. Hip joints are intact. IMPRESSION: There is some sigmoid diverticulosis and some focal sigmoid diverticulitis. No renal stone or obstruction. Appendix not seen.
[2021-01-25] MEDS ORDERED: cefTRIAXone IN SWFI 1,000 MG/10 ML SYRINGE IVP STA (22:40)
[2021-01-25] MEDS ORDERED: ONDANSETRON 4 MG ODT STARTER PACK 2 TAB BTL PO STA (22:40)
[2021-01-25] MEDS ORDERED: ACET/COD 300 MG/30 MG STARTER PACK 6 TAB BTL PO STA (22:40)
[2021-01-25 23:03] VITALS: BP 122/70; PULSE 80; RESP 18
== END 2021-01-25 23:14 | disposition home or self-care (01) ==
LOC: EC 19:46
DX: K57.32 Diverticulitis of large intestine without perforation or abscess without bleeding (principal); K21.9 Gastro-esophageal reflux disease without esophagitis; J45.909 Unspecified asthma, uncomplicated; F41.9 Anxiety disorder, unspecified; F31.9 Bipolar disorder, unspecified; F17.290 Nicotine dependence, other tobacco product, uncomplicated; Z90.89 Acquired absence of other organs
CPT/HCPCS: 99284; 96374; 96375 ×3; 96376; 96361; 36415; 80053; 82150; 83605; 83690; 85025; 81001; 74177; J2405; J0696; J1885; S0119; J1170; Q9967

== ENCOUNTER → 2021-09-08 | Outpatient (CLI) | payer BC ==
--- NOTE | 2021-09-08 17:48 | CONS ---
CONSULTATION DATE OF SERVICE: 09/08/2021 This 31-year-old gentleman has been evaluated in [facility] for possible obstructive sleep apnea-hypopnea syndrome. HISTORY OF PRESENT ILLNESS/SLEEP-WAKE EVALUATION: Patient's usual sleep schedule on weekdays is from 10 p.m. to 5:30 a.m. and on weekends from 10 p.m. to 7 a.m. He does have problems sometimes with falling asleep. No history of hypnagogic hallucinations, sleep paralysis or cataplexy. Positive history of sleeptalking. In the morning the patient wakes up tired, has difficulties paying attention, has episodes of depression and anxiety. [place] Sleepiness Scale is 1. PAST MEDICAL HISTORY: Positive for ADHD, episodes of aggressiveness, acid reflux, asthma in the past. PAST SURGICAL HISTORY: Left knee surgery, tonsillectomy. MEDICATIONS: 1. Dextroamphetamine 20 mg once a day. 2. Sertraline 50 mg once a day. 3. Cephalexin. FAMILY HISTORY: Hypertension, diabetes. REVIEW OF SYSTEMS: Snoring, feeling not refreshed in the morning. No fevers. No double vision. No recent chest pain. No shortness of breath. No abdominal pain. No bleeding episodes. No blood in the urine. No seizure episodes. PHYSICAL EXAMINATION: GENERAL: Pleasant gentleman without distress. VITAL SIGNS: BP 118/82, HR 89, RR 18, height 6 feet 2 inches, weight 287.0, body mass index 36.8, temperature 97.5, oxygen saturation at room air 97%. HEENT: PERRLA, EOMI, evaluation of oropharynx showed tongue protrudes midline. Low position of soft palate; Mallampati III. Wide uvula. NECK: Supple, no JVD. Thyroid is not palpable. Neck measures 16-1/2 inches in circumference. LUNGS: Clear to percussion and to auscultation. Good air exchange. No wheezing or rhonchi. HEART: S1, S2 regular. No murmurs, gallops, or rubs. ABDOMEN: Soft and nontender. Bowel sounds are present. No organomegaly appreciated. EXTREMITIES: No clubbing or cyanosis. LEGAL ENTITY CONTROLLER: Awake, alert, and oriented X3. Cranial nerves 2 to 7 intact. There is no fasciculation or atrophy. noted. No focal deficits observed. IMPRESSION: 1. Snoring, feeling tiredness in the morning after awakening, low position of soft palate, Mallampati III; possible obstructive sleep apnea-hypopnea syndrome. 2. Obesity; BMI 36.8. 3. History of sleeptalking. 4. History of attention deficit hyperactivity disorder. 5. History of episodes of aggressiveness. 6. History of asthma in the past. 7. Status post tonsillectomy. 8. Status post left knee surgery. PLAN: 1. Home sleep apnea test for evaluation of patient's breathing during sleep. 2. CPAP/BiPAP titration if sleep study confirms obstructive sleep apnea-hypopnea syndrome. 3. Preferable position during sleep on the side. 4. No driving if patient feels any sleepiness. 5. I will see patient for follow up visit to explain results of testing and following plan. Thank you very much for referring this patient for consultation. Sincerely, Chago Hansen MD, PhD, FAASM Diplomat of [employer] Sleep Medicine Board of [employer] [employer] Creative Resource Manager [facility] [place] [facility]ODL / [place]: [phone] /
== END ==
LOC: SLEEP 15:45
PROVIDERS: ATTEND Internal Medicine
DX: R06.83 Snoring (principal); R53.83 Other fatigue; E66.9 Obesity, unspecified; Z68.36 Body mass index [BMI] 36.0-36.9, adult; F90.9 Attention-deficit hyperactivity disorder, unspecified type; J45.909 Unspecified asthma, uncomplicated; Z90.09 Acquired absence of other part of head and neck; Z98.890 Other specified postprocedural states; Z86.59 Personal history of other mental and behavioral disorders; Z87.891 Personal history of nicotine dependence
CPT/HCPCS: 99211

== ENCOUNTER 2022-02-02 15:04 | Emergency (ER) | payer BC ==
[2022-02-02 15:27] VITALS: BP 146/98; PULSE 95; RESP 16; TEMP 98.1
[2022-02-02] MEDS ORDERED: FAMOTIDINE 20 MG TAB PO STA (15:48)
[2022-02-02] MEDS ORDERED: methylPREDNISolone SOD SUCCI 125 MG/2 ML VIAL IM ONE (15:48)
--- NOTE | 2022-02-02 16:37 | ED ---
General Adult HPI - General Chief complaint: Allergic Reaction Stated complaint: Bee sting on throat Time Seen by Provider: 02/02/22 15:34 Source: patient, RN notes reviewed, old records reviewed Mode of arrival: ambulatory - History of Present Illness Initial comments: Patient is a 31-year-old male who presents emergency Department complaining of a bug flying down his throat approximately 1 hour prior to arrival. He believes it was a bee. Is uncertain if it stung him. States he hurts in the back of his throat on the left side. Denies any difficulty in breathing, swallowing. Denies any known ALLERGIC reactions previously or ALLERGIES. Denies any chest pain, shortness breath, abdominal pain, nausea, vomiting. Denies any lightheadedness. Denies any change in his voice. Presents for further evaluation at this time. Denies any tongue swelling or intraoral swelling that he can tell. He does have a history of asthma. - Related Data Previous Rx's Medication Instructions Recorded Bacitracin Zinc Oint 28.4 gm TOPICAL BID #1 tube 05/16/17 Sulfamethox-Tmp 800-160Mg [Bactrim 1 tab PO Q12HR #20 tab 05/16/17 DS 800-160 mg] Ibuprofen 800 mg PO TID #20 tablet 01/15/19 Penicillin V Potassium [Pen Vee K] 500 mg PO Q6H #28 tablet 01/15/19 methocarbamoL [Robaxin-750] 750 mg PO TID PRN #30 tablet 01/15/19 Amoxicillin/Potassium Clav 1 tab PO Q12HR #20 tab 01/25/21 [Augmentin 875-125 Tablet] Allergies Allergy/AdvReac Type Severity Reaction Status Date / Time No Known Allergies Allergy Verified 02/02/22 15:28 Review of Systems ROS Statement: Those systems with pertinent positive or pertinent negative responses have been documented in the HPI. Review of Systems: CONST: Denies fever EYES: Denies blurry vision ENT: Denies nasal congestion C/V: Denies Chest pain RESP: Denies shortness of breath GI: Denies abdominal pain : Denies dysuria SKIN: Denies rash. MSK: Denies joint pain. NEURO: Denies headache ROS Other: All systems not noted in ROS Statement are negative. Past Medical History Past Medical History: Asthma, GERD/Reflux History of Any Multi-Drug Resistant Organisms: MRSA Date of last positivie culture/infection: 11/19/15 MDRO Source:: right axilla Past Surgical History: Adenoidectomy, Orthopedic Surgery, Tonsillectomy Additional Past Surgical History / Comment(s): RIGHT KNEE Past Psychological History: Anxiety, Bipolar, Depression Smoking Status: Vaper Past Alcohol Use History: Occasional Past Drug Use History: None Reported General Exam - General Exam Comments Initial Comments: General: Appears in no acute distress. HEAD: Normal with no signs of head trauma. EYES: PERRLA, EOMI, conjunctiva normal, no discharge. ENT: Hearing grossly intact, normal oropharynx. No stridor. No abnormalities in the posterior oropharynx. No swelling. Uvula is midline. Tongue is not swollen. No neck masses or swelling. Trachea is midline. RESPIRATORY: Clear breath sounds bilaterally. No wheezes, rales, or rhonchi. No respiratory distress. No hypoxia. C/V: Regular rate and rhythm. S1 and S2 auscultated, no edema, peripheral pulses 2+ and intact throughout ABD: Abd is soft, nontender, nondistended EXT: Normal range of motion, no obvious deformity SKIN: No rashes or lesions observed on exposed skin. NEURO: Alert and oriented x 4. Course Vital Signs 02/02/22 15:25 Temperature 98.1 F Pulse Rate 95 Respiratory 16 Rate Blood Pressure 146/98 O2 Sat by Pulse 99 Oximetry Medical Decision Making - Medical Decision Making Based on the patient's presentation and physical exam, appears in insect possibly a bee flew into the back of his throat and then he was able to remove it. Unknown if it stung him. Is having some discomfort with no obvious signs of ALLERGIC reaction or anaphylaxis. He did take Benadryl prior to arrival. He has no obvious physical exam findings. Vital signs are within normal limits. I did discuss with him and we will treat him for an ALLERGIC reaction with additional IM steroids as well as famotidine. We will observe him in the department for approximately 1 hour. We will by mouth challenge him. He was in agreement this plan. He is up-to-date on his tetanus. On reevaluation, patient remains within normal limits. Vital signs remained within normal limits. No respiratory distress. No signs of ALLERGIC reaction or anaphylaxis. He would like to go home. I believe this is reasonable. We discussed strict return precautions. He did continue to use Benadryl as well as [id number] analgesia as needed for pain control. He was in agreement with this plan. I instructed the patient to follow up with their PCP in the next 1-3 days. I explained that the patient should return to the emergency department if they experience any worsening symptoms. Strict return precautions were discussed with the patient. The patient expressed understanding of these instructions. I answered all questions that the patient had. The patient was discharged home in good condition with their prescriptions and follow up information. Disposition Clinical Impression: Sting, insect Disposition: HOME SELF-CARE Condition: Good Instructions (If sedation given, give patient instructions): Insect Bite or Sting (ED) Is patient prescribed a controlled substance at d/c from ED?: No Referrals: Moises Fierro DO [Primary Care Provider] - 1-2 days Time of Disposition: 16:40
== END 2022-02-02 17:28 | disposition home or self-care (01) ==
LOC: EC 15:04
DX: T63.441A Toxic effect of venom of bees, accidental (unintentional), initial encounter (principal); J45.909 Unspecified asthma, uncomplicated; F17.290 Nicotine dependence, other tobacco product, uncomplicated
CPT/HCPCS: 99282; 96372; J2930

== ENCOUNTER 2024-02-07 09:17 | Emergency (ER) | payer BC ==
[2024-02-07 09:27] VITALS: RESP 18; TEMP 98
--- NOTE | 2024-02-07 10:11 | ED ---
Chest Pain HPI - General Chief Complaint: Chest Pain Stated Complaint: Chest pain,SOB Time Seen by Provider: 02/07/24 09:36 Source: patient, RN notes reviewed Mode of arrival: ambulatory Limitations: no limitations - History of Present Illness Initial Comments: 33-year-old male presents emergency department complaint of sudden onset of upper chest pain. Patient states he got home from dropping his kids off to school. Patient states that started upper chest does not radiate is worse with deep inspiration. He does admit that he traveled to [place] last week. Patient denies any fevers or chills no cough cold-like symptoms denies any prior cardiac disease no history of hypertension hyperlipidemia diabetes. - Related Data Home Medications Medication Instructions Recorded Confirmed Dextroamphetamine/Amphetamine 10 mg PO BID@0800,1400 02/07/24 02/07/24 [Adderall] Sertraline [Zoloft] 100 mg PO DAILY 02/07/24 02/07/24 Previous Rx's Medication Instructions Recorded Ibuprofen [Motrin] 600 mg PO Q8HR PRN #20 tab 02/07/24 Allergies Allergy/AdvReac Type Severity Reaction Status Date / Time No Known Allergies Allergy Verified 02/07/24 09:22 Review of Systems ROS Statement: Those systems with pertinent positive or pertinent negative responses have been documented in the HPI. ROS Other: All systems not noted in ROS Statement are negative. EKG Findings - EKG Comments: EKG Findings:: EKG performed at 9: 32 sinus rhythm rate 71 RI 140 QRS 93 QT/QTc 372/394 - EKG Results: EKG: interpreted by JC Past Medical History Past Medical History: Asthma, GERD/Reflux History of Any Multi-Drug Resistant Organisms: MRSA Date of last positivie culture/infection: 11/19/15 MDRO Source:: right axilla Past Surgical History: Adenoidectomy, Orthopedic Surgery, Tonsillectomy Additional Past Surgical History / Comment(s): RIGHT KNEE Past Psychological History: Anxiety, Bipolar, Depression Smoking Status: Vaper Past Alcohol Use History: None Reported Past Drug Use History: None Reported General Exam Limitations: no limitations Course Vital Signs 02/07/24 02/07/24 09:23 12:25 Temperature 98 F Pulse Rate 75 66 Respiratory 18 18 Rate Blood Pressure 132/87 171/93 O2 Sat by Pulse 99 97 Oximetry Chest Pain MDM - MDM Was pt. sent in by a medical professional or institution (, VASILE, ELECTRIC PILE DRIVER OPERATOR, urgent care, hospital, or assisted...) When possible be specific @ -No Did you speak to anyone other than the patient for history (EMS, parent, family, police, friend...)? What history was obtained from this source @ -No Did you review nursing and triage notes (agree or disagree)? Why? @ -I reviewed and agree with nursing and triage notes Were old charts reviewed (outside hosp., previous admission, EMS record, old EKG, old radiological studies, urgent care reports/EKG's, assisted records)? Report findings @ -No old charts were reviewed Differential Diagnosis (chest pain, altered mental status, abdominal pain women, abdominal pain men, vaginal bleeding, weakness, fever, dyspnea, syncope, headache, dizziness, GI bleed, back pain, seizure, CVA, palpatations, mental health, musculoskeletal)? @ -Differential Chest Pain: Stable Angina, Unstable Angina, STEMI, NSTEMI Aortic Dissection, Pneumothorax, Musculoskeletal, Esophageal Spasm GERD, Cholecystitis, Pancreatitis, Zoster, this is not meant to be an all-inclusive list. EKG interpreted by me (3pts min.). @ -As above X-rays interpreted by me (1pt min.). @ -Chest x-ray shows no acute cardiopulmonary process CT interpreted by me (1pt min.). @ -None done U/S interpreted by me (1pt. min.). @ -None done What testing was considered but not performed or refused? (CT, X-rays, U/S, la bs)? Why? @ -None What meds were considered but not given or refused? Why? @ -None Did you discuss the management of the patient with other professionals (professionals i.e. VASILE Larson, ELECTRIC PILE DRIVER OPERATOR, lab, RT, psych nurse, social work coordinator, community relations rep, teacher, classifications officer cc/cm, manager rn case)? Give summary @ -No Was smoking cessation discussed for >3mins.? @ -No Was critical care preformed (if so, how long)? @ -No Were there social determinants of health that impacted care today? How? (Homelessness, low income, unemployed, alcoholism, drug addiction, transportation, low edu. Level, literacy, decrease access to med. care, longterm, rehab)? @ -No Was there de-escalation of care discussed even if they declined (Discuss DNR or withdrawal of care, Hospice)? DNR status @ -No What co-morbidities impacted this encounter? (DM, HTN, Smoking, COPD, CAD, Cancer, CVA, ARF, Chemo, Hep., AIDS, mental health diagnosis, sleep apnea, morbid obesity)? @ -None Was patient admitted / discharged? Hospital course, mention meds given and route, prescriptions, significant lab abnormalities, going to OR and other pertinent info. @ -Discharge patient has reproducible chest wall pain, laboratory studies unremarkable negative D-dimer negative troponin patient feels improved after Toradol. Patient discharged with anti-inflammatories return parens discussed. Undiagnosed new problem with uncertain prognosis? @ -No Drug Therapy requiring intensive monitoring for toxicity (Heparin, Nitro, Insulin, Cardizem)? @ -No Were any procedures done? @ -No Diagnosis/symptom? @ -Chest wall pain Acute, or Chronic, or Acute on Chronic? @ -Acute Uncomplicated (without systemic symptoms) or Complicated (systemic symptoms)? @ -Complicated Side effects of treatment? @ -No Exacerbation, Progression, or Severe Exacerbation? @ -No Poses a threat to life or bodily function? How? (Chest pain, [place], [place], pneumonia, PE, COPD, DKA, ARF, appy, cholecystitis, CVA, Diverticulitis, Homicidal, Suicidal, threat to staff... and all critical care pts) @ -No Disposition Clinical Impression: Chest wall pain Disposition: HOME SELF-CARE Condition: Stable Instructions (If sedation given, give patient instructions): Chest Wall Pain (ED) Additional Instructions: Please return to the Emergency Department if symptoms worsen or any other concerns. Prescriptions: Ibuprofen [Motrin] 600 mg PO Q8HR PRN #20 tab PRN Reason: Pain Is patient prescribed a controlled substance at d/c from ED?: No Referrals: Moises Fierro DO [Primary Care Provider] - 1-2 days Time of Disposition: 12:10
[2024-02-07 10:14] LABS: Basophils # (A) 0.1 k/uL (0-0.2); Basophils % (A) 1 %; Eosinophils # (A) 0.2 k/uL (0-0.7); Eosinophils % (A) 2 %; HCT 48.4 % (39.0-53.0); HGB 15.6 gm/dL (13.0-17.5); Lymphocytes # (A) 2.3 k/uL (1.0-4.8); Lymphocytes % (A) 29 %; MCH 29.2 pg (25.0-35.0); MCHC 32.4 g/dL (31.0-37.0); MCV 90.3 fL (80.0-100.0); Mean Platelet Volume 7.8; Monocytes # (A) 0.5 k/uL (0-1.0); Monocytes % (A) 6 %; Neutrophils # (A) 4.7 k/uL (1.3-7.7); Neutrophils % (A) 60 %; Platelet Count 328 k/uL (150-450); RBC 5.36 m/uL (4.30-5.90); RDW 13.2 % (11.5-15.5); WBC 7.8 k/uL (3.8-10.6)
[2024-02-07 10:27] LABS: ALT 25 U/L (4-49); AST 29 U/L (17-59); African American GFR (CKD) >90 (>60 ml/min/1.73 sqM); Albumin 4.3 g/dL (3.5-5.0); Alkaline Phosphatase 76 U/L (38-126); Anion Gap 5 mmol/L; Blood Urea Nitrogen 10 mg/dL (9-20); Calcium 9.6 mg/dL (8.4-10.2); Carbon Dioxide 29 mmol/L (22-30); Chloride 106 mmol/L (98-107); Glucose 90 mg/dL (74-99); Non-African American GFR(CKD) >90 (>60 ml/min/1.73 sqM); Potassium 4.4 mmol/L (3.5-5.1); Sodium 140 mmol/L (137-145); Total Bilirubin 0.4 mg/dL (0.2-1.3)
[2024-02-07 10:34] LABS: Partial Thromboplastin Time 25.6 sec (22.0-30.0); Prothrombin Time 10.7 sec (10.0-12.5)
--- NOTE | 2024-02-07 10:56 | XR ---
EXAMINATION TYPE: XR chest 2V DATE OF EXAM: 02/07/2024 COMPARISON: 04/11/2019 HISTORY: Chest pain TECHNIQUE: Frontal and lateral views of the chest are obtained. FINDINGS: There is no focal air space opacity, pleural effusion, or pneumothorax seen. The cardiac silhouette size is within normal limits. The osseous structures are intact. IMPRESSION: No acute cardiopulmonary process. [facility], Workstation: ARTIS 02/07/2024 10:53 AM
[2024-02-07] MEDS: KETOROLAC 15 MG/ML 1 ML VIAL IVP STA (11:37)
[2024-02-07 12:26] VITALS: BP 171/93; PULSE 66
== END 2024-02-07 12:26 | disposition home or self-care (01) ==
LOC: EC 09:17
CPT/HCPCS: 36415; 71046; 80053; 83735; 84484; 85025; 85379; 85610; 85730; 93005; 96374; 99283

== ENCOUNTER 2024-03-23 10:28 | Emergency (ER) | payer BC ==
--- NOTE | 2024-03-23 11:01 | ED ---
General Adult HPI - General Chief complaint: Extremity Injury, Lower Stated complaint: Left ankle injury Time Seen by Provider: 03/23/24 10:45 Source: patient, RN notes reviewed, old records reviewed Mode of arrival: ambulatory Limitations: no limitations - History of Present Illness Initial comments: This is a 33-year-old male who presents to the emergency department complaining of left lateral ankle pain. Patient states he played football yesterday and twisted his ankle. Patient denies any upper leg pain. Patient has any knee pain patient has any foot or toe pain - Related Data Home Medications Medication Instructions Recorded Confirmed Dextroamphetamine/Amphetamine 10 mg PO BID@0800,1400 02/07/24 02/07/24 [Adderall] Sertraline [Zoloft] 100 mg PO DAILY 02/07/24 02/07/24 Previous Rx's Medication Instructions Recorded Ibuprofen [Motrin] 600 mg PO Q8HR PRN #20 tab 02/07/24 Allergies Allergy/AdvReac Type Severity Reaction Status Date / Time No Known Allergies Allergy Verified 03/23/24 10:43 Review of Systems ROS Statement: Those systems with pertinent positive or pertinent negative responses have been documented in the HPI. ROS Other: All systems not noted in ROS Statement are negative. Past Medical History Past Medical History: Asthma, GERD/Reflux History of Any Multi-Drug Resistant Organisms: MRSA Date of last positivie culture/infection: 11/19/15 MDRO Source:: right axilla Past Surgical History: Adenoidectomy, Orthopedic Surgery, Tonsillectomy Additional Past Surgical History / Comment(s): RIGHT KNEE Past Psychological History: Anxiety, Bipolar, Depression Smoking Status: Vaper Past Alcohol Use History: None Reported Past Drug Use History: None Reported General Exam - General Exam Comments Initial Comments: GENERAL Patient is well-developed and well-nourished. Patient is in mild distress. EYES Patient's pupils are equal and round. Extraocular motion is intact SKIN Unremarkable NEURO The patient is alert and oriented A&Ox3 PYSCH Patient has normal interpersonal interactions. MUSCULOSKELETAL Patient's left lateral ankle swollen and tender to palpation patient has no proximal leg tenderness no foot tenderness Limitations: no limitations Course Vital Signs 03/23/24 10:41 Temperature 98.1 F Pulse Rate 87 Respiratory 20 Rate Blood Pressure 114/84 O2 Sat by Pulse 97 Oximetry Medical Decision Making - Medical Decision Making Was pt. sent in by a medical professional or institution (VASILE Larson, INSURANCE ACCOUNT REPRESENTATIVE, urgent care, hospital, or skilled nursing...) When possible be specific @ -No Did you speak to anyone other than the patient for history (EMS, parent, family, police, friend...)? What history was obtained from this source @ -No Did you review nursing and triage notes (agree or disagree)? Why? @ -I reviewed and agree with nursing and triage notes Were old charts reviewed (outside hosp., previous admission, EMS record, old EKG, old radiological studies, urgent care reports/EKG's, skilled nursing records)? Report findings @ -No old charts were reviewed Differential Diagnosis? @ -Differential Musculoskeletal Muscular strain, contusion, ligament sprain, fracture, arthritis, septic arthritis, bursitis, cellulitis, muscle spasm, nerve compression, DVT, arterial occlusion, herpes zoster, electrolyte abnormality, tumor.... This is not meant to be in all inclusive list EKG interpreted by me (3pts min.). @ -As above X-rays interpreted by me (1pt min.). @ -X-ray of the ankle shows no acute abnormality CT interpreted by me (1pt min.). @ -None done U/S interpreted by me (1pt. min.). @ -None done What testing was considered but not performed or refused? (CT, X-rays, U/S, labs)? Why? @ -None What meds were considered but not given or refused? Why? @ -None Did you discuss the management of the patient with other professionals (professionals i.e. VASILE Larson, INSURANCE ACCOUNT REPRESENTATIVE, lab, RT, psych nurse, director social, clinical data management director, teacher, upscale security officer, leather case finisher)? Give summary @ -No Was smoking cessation discussed for >3mins.? @ -No Was critical care preformed (if so, how long)? @ -No Were there social determinants of health that impacted care today? How? (Homelessness, low income, unemployed, alcoholism, drug addiction, transportation, low edu. Level, literacy, decrease access to med. care, senior care, rehab)? @ -No Was there de-escalation of care discussed even if they declined (Discuss DNR or withdrawal of care, Hospice)? DNR status @ -No What co-morbidities impacted this encounter? (DM, HTN, Smoking, COPD, CAD, Cancer, CVA, ARF, Chemo, Hep., AIDS, mental health diagnosis, sleep apnea, morbid obesity)? @ -None Was patient admitted / discharged? Hospital course, mention meds given and route, prescriptions, significant lab abnormalities, going to OR and other pertinent info. @ -Patient had a ankle splint placed and he is instructed to follow-up with Ortho if symptoms worsen or do not improve Undiagnosed new problem with uncertain prognosis? @ -No Drug Therapy requiring intensive monitoring for toxicity (Heparin, Nitro, Insulin, Cardizem)? @ -No Were any procedures done? @ -No Diagnosis/symptom? @ -Default Acute, or Chronic, or Acute on Chronic? @ -Ankle sprain Uncomplicated (without systemic symptoms) or Complicated (systemic symptoms)? @ -Uncomplicated Side effects of treatment? @ -No Exacerbation, Progression, or Severe Exacerbation? @ -No Poses a threat to life or bodily function? How? (Chest pain, [place], [place], pneumonia, PE, COPD, DKA, ARF, appy, cholecystitis, CVA, Diverticulitis, Homicidal, Suicidal, threat to staff... and all critical care pts) @ -No Disposition Clinical Impression: Ankle sprain Disposition: HOME SELF-CARE Condition: Good Instructions (If sedation given, give patient instructions): Ankle Sprain (ED) Is patient prescribed a controlled substance at d/c from ED?: No Referrals: Moises Fierro DO [Primary Care Provider] - 1-2 days Mango Alston DO [Doctor of Osteopathic Medicine] - 1-2 days Time of Disposition: 11:46
--- NOTE | 2024-03-23 11:13 | XR ---
EXAMINATION TYPE: XR ankle complete LT DATE OF EXAM: 03/23/2024 11:09 AM COMPARISON: None. CLINICAL INDICATION: Male, 33 years old with history of Ankle pain, TECHNIQUE: 3 view(s) obtained. FINDINGS: Moderate soft tissue swelling over the lateral malleolus. Ankle mortise is intact. No acute fractures or dislocations evident. Follow up exams can be performed 7-10 days from acute trauma for continued pain. IMPRESSION: 1. Moderate soft tissue swelling over the lateral malleolus. 2. No displaced fractures identified [facility], , 03/23/2024 11:11 AM
[2024-03-23 11:57] VITALS: BP 115/89; PULSE 81; RESP 18; TEMP 98
== END 2024-03-23 11:56 | disposition home or self-care (01) ==
LOC: EC 10:28
DX: S93.402A Sprain of unspecified ligament of left ankle, initial encounter (principal); F17.290 Nicotine dependence, other tobacco product, uncomplicated; X50.1XXA Overexertion from prolonged static or awkward postures, initial encounter; Y93.61 Activity, american tackle football
CPT/HCPCS: 73610; 99283; 29515; L4350

== ENCOUNTER 2024-04-07 17:33 | Emergency (ER) | payer BC ==
[2024-04-07] MEDS: dexAMETHasone 4 MG TAB PO STA (18:15)
[2024-04-07] MEDS: IBUPROFEN 800 MG TAB PO STA (18:15)
--- NOTE | 2024-04-07 18:50 | XR ---
EXAMINATION TYPE: XR chest 2V DATE OF EXAM: 04/07/2024 6:30 PM COMPARISON: Chest radiographs from 02/07/2024 CLINICAL INDICATION: Male, 33 years old with history of cough, fever; H TECHNIQUE: XR chest 2V Frontal and lateral views of the chest. FINDINGS: Lungs/Pleura: Right lower lobe airspace opacities. There is no evidence of pleural effusion, focal co nsolidation, or pneumothorax. Pulmonary vascularity: Unremarkable. Heart/mediastinum: Cardiomediastinal silhouette is unremarkable. Musculoskeletal: No acute osseous pathology. IMPRESSION: Right lower lobe airspace disease correlate for pneumonia [facility], , 04/07/2024 6:48 PM
[2024-04-07 18:53] VITALS: TEMP 98.8
--- NOTE | 2024-04-07 19:23 | ED ---
General Adult HPI - General Chief complaint: Upper Respiratory Infection Stated complaint: Fever Time Seen by Provider: 04/07/24 18:09 Source: patient, RN notes reviewed, old records reviewed Mode of arrival: ambulatory Limitations: no limitations - History of Present Illness Initial comments: Is a 33-year-old male who presents emergency department for URI symptoms. Been having cough, fevers, body aches, fatigue. Has been ongoing for multiple days. Took Tylenol Motrin for fever without improvement. Denies any chest pain or shortness of breath. Endorses mildly productive cough. Denies sore throat. Denies nausea or vomiting or diarrhea. Denies abdominal pain. Has no other acute complaints at this time. No known sick contacts. Presents for further evaluation. - Related Data Home Medications Medication Instructions Recorded Confirmed Dextroamphetamine/Amphetamine 10 mg PO BID@0800,1400 02/07/24 02/07/24 [Adderall] Sertraline [Zoloft] 100 mg PO DAILY 02/07/24 02/07/24 Previous Rx's Medication Instructions Recorded Ibuprofen [Motrin] 600 mg PO Q8HR PRN #20 tab 02/07/24 Amoxic-Pot Clav 875-125Mg 1 tab PO BID 10 Days #20 tab 04/07/24 [Augmentin 875-125] Allergies Allergy/AdvReac Type Severity Reaction Status Date / Time No Known Allergies Allergy Verified 04/07/24 17:50 Review of Systems ROS Statement: Those systems with pertinent positive or pertinent negative responses have been documented in the HPI. Review of Systems: CONST: Endorses fever EYES: Denies blurry vision ENT: Endorses nasal congestion, cough C/V: Denies Chest pain RESP: Denies shortness of breath GI: Denies abdominal pain : Denies dysuria SKIN: Denies rash. MSK: Denies joint pain. NEURO: Denies headache ROS Other: All systems not noted in ROS Statement are negative. Past Medical History Past Medical History: Asthma, GERD/Reflux History of Any Multi-Drug Resistant Organisms: MRSA Date of last positivie culture/infection: 11/19/15 MDRO Source:: right axilla Past Surgical History: Adenoidectomy, Orthopedic Surgery, Tonsillectomy Additional Past Surgical History / Comment(s): RIGHT KNEE Past Psychological History: Anxiety, Bipolar, Depression Smoking Status: Vaper Past Alcohol Use History: None Reported Past Drug Use History: None Reported General Exam - General Exam Comments Initial Comments: General: Appears in no acute distress. Febrile. HEAD: Normal with no signs of head trauma. EYES: EOMI ENT: Hearing grossly intact, normal oropharynx. RESPIRATORY: Clear breath sounds bilaterally. No wheezes, rales, or rhonchi. C/V: Regular rate and rhythm. S1 and S2 auscultated. Peripheral pulses 2+ intact throughout. ABD: Abd is soft, nontender, nondistended EXT: No obvious deformity SKIN: No rashes or lesions observed on exposed skin. NEURO: Alert and oriented x 4. Limitations: no limitations Course Vital Signs 04/07/24 04/07/24 04/07/24 17:48 18:52 19:32 Temperature 101 F H 98.8 F Pulse Rate 92 94 Respiratory 18 20 Rate Blood Pressure 122/78 120/80 O2 Sat by Pulse 98 98 Oximetry Medical Decision Making - Medical Decision Making Was pt. sent in by a medical professional or institution (, PA, BENDING ROLL OPERATOR, urgent care, hospital, or senior care...) When possible be specific @ -No Did you speak to anyone other than the patient for history (EMS, parent, family, police, friend...)? What history was obtained from this source @ -No Did you review nursing and triage notes (agree or disagree)? Why? @ -I reviewed and agree with nursing and triage notes Were old charts reviewed (outside hosp., previous admission, EMS record, old EKG, old radiological studies, urgent care reports/EKG's, senior care records)? Report findings @ -No old charts were reviewed Differential Diagnosis (chest pain, altered mental status, abdominal pain women, abdominal pain men, vaginal bleeding, weakness, fever, dyspnea, syncope, headache, dizziness, GI bleed, back pain, seizure, CVA, palpatations, mental health, musculoskeletal)? @ -Pneumonia, flu, RSV, COVID. This list is not all inclusive. EKG interpreted by me (3pts min.). @ -None done X-rays interpreted by me (1pt min.). @ -Chest x-ray reveals right lower lobe pneumonia CT interpreted by me (1pt min.). @ -None done U/S interpreted by me (1pt. min.). @ -None done What testing was considered but not performed or refused? (CT, X-rays, U/S, labs)? Why? @ -None What meds were considered but not given or refused? Why? @ -None Did you discuss the management of the patient with other professionals (professionals i.e. , PA, BENDING ROLL OPERATOR, lab, RT, psych nurse, social service worker, financial assistance advisor, teacher, commissary officer, binder caser)? Give summary @ -No Was smoking cessation discussed for >3mins.? @ -No Was critical care preformed (if so, how long)? @ -No Were there social determinants of health that impacted care today? How? (Homelessness, low income, unemployed, alcoholism, drug addiction, transportation, low edu. Level, literacy, decrease access to med. care, [facility], rehab)? @ -No Was there de-escalation of care discussed even if they declined (Discuss DNR or withdrawal of care, Hospice)? DNR status @ -No What co-morbidities impacted this encounter? (DM, HTN, Smoking, COPD, CAD, Cancer, CVA, ARF, Chemo, Hep., AIDS, mental health diagnosis, sleep apnea, morbid obesity)? @ -None Was patient admitted / discharged? Hospital course, mention meds given and route, prescriptions, significant lab abnormalities, going to OR and other pertinent info. @ -Based on patient's presentation and physical exam, presents with URI symptoms. We will obtain viral swabs, strep swab, chest x-ray. Patient symptomatically treated with a dose of Decadron as well as Motrin. Vitals are within acceptable limits except for fever. Swabs are all negative including strep. Chest x-ray does reveal right lower lobe pneumonia. On reevaluation, I updated the patient. Vital signs remained within acceptable limits and fevers improved. Patient will be started on Augmentin. Strict return precautions discussed. Patient be discharged home at this time. Given a work note to isolate for 2 to 3 days. I will provide the patient with a prescription for Augmentin. I instructed the patient to follow up with their PCP in the next 1-3 days.. I explained that the patient should return to the emergency department if they experience any worsening symptoms. Strict return precautions were discussed with the patient. The patient expressed understanding of these instructions. I answered all questions that the patient had. The patient was discharged home in fair condition with their prescriptions and follow up information. Undiagnosed new problem with uncertain prognosis? @ -No Drug Therapy requiring intensive monitoring for toxicity (Heparin, Nitro, Insulin, Cardizem)? @ -No Were any procedures done? @ -No Diagnosis/symptom? @ -Community acquired pneumonia Acute, or Chronic, or Acute on Chronic? @ -Acute Uncomplicated (without systemic symptoms) or Complicated (systemic symptoms)? @ -Complicated Side effects of treatment? @ -No Exacerbation, Progression, or Severe Exacerbation? @ -No Poses a threat to life or bodily function? How? (Chest pain, [place], [place], pneumonia, PE, COPD, DKA, ARF, appy, cholecystitis, CVA, Diverticulitis, Homicidal, Suicidal, threat to staff... and all critical care pts) @ -Unlikely - Lab Data Lab Results 04/07/24 04/07/24 Range/Units 18:16 18:17 Influenza Type A (PCR) Not Detected (Not Detectd) Influenza Type B (PCR) Not Detected (Not Detectd) RSV (PCR) Not Detected (Not Detectd) SARS-CoV-2 (PCR) Not Detected (Not Detectd) Group A Strep (PCR) NOT DETECTED (Not Detectd) Disposition Clinical Impression: Pneumonia Disposition: HOME SELF-CARE Condition: Fair Instructions (If sedation given, give patient instructions): Community Acquired Pneumonia (ED) Additional Instructions: You have right lower lobe pneumonia. Follow-up with your PCP in 1 to 3 days. Use Tylenol Motrin for analgesic control as well as fever control. Complete course of antibiotics. Return if worsening symptoms. Prescriptions: Amoxic-Pot Clav 875-125Mg [Augmentin 875-125] 1 tab PO BID 10 Days #20 tab Is patient prescribed a controlled substance at d/c from ED?: No Referrals: Moises Fierro DO [Primary Care Provider] - 1-2 days Time of Disposition: 19:23
[2024-04-07] MEDS: AMOXIC-POT CLAV 875-125MG 1 EACH TAB PO STA (19:29)
[2024-04-07 19:34] VITALS: BP 120/80; PULSE 94; RESP 20
== END 2024-04-07 19:32 | disposition home or self-care (01) ==
LOC: EC 17:33
DX: J18.9 Pneumonia, unspecified organism (principal); F17.290 Nicotine dependence, other tobacco product, uncomplicated
CPT/HCPCS: 99283; 87651; 87636; 71046; J8540

== ENCOUNTER 2024-05-18 19:29 | Emergency (ER) | payer BC ==
[2024-05-18 19:40] VITALS: TEMP 99.1
[2024-05-18 20:09] LABS: Basophils # (A) 0.1 k/uL (0-0.2); Basophils % (A) 1 %; Eosinophils # (A) 0.2 k/uL (0-0.7); Eosinophils % (A) 2 %; HGB 15.4 gm/dL (13.0-17.5); Lymphocytes # (A) 2.8 k/uL (1.0-4.8); Lymphocytes % (A) 32 %; MCH 29.8 pg (25.0-35.0); MCHC 34.3 g/dL (31.0-37.0); MCV 86.7 fL (80.0-100.0); Mean Platelet Volume 7.8; Monocytes # (A) 0.6 k/uL (0-1.0); Monocytes % (A) 7 %; Neutrophils # (A) 4.9 k/uL (1.3-7.7); Neutrophils % (A) 57 %; Platelet Count 265 k/uL (150-450); RBC 5.19 m/uL (4.30-5.90); RDW 13.7 % (11.5-15.5); WBC 8.7 k/uL (3.8-10.6)
[2024-05-18] MEDS: KETOROLAC 15 MG/ML 1 ML VIAL IVP STA (20:14)
[2024-05-18] MEDS: SODIUM CHLORIDE 0.9% 500 ML 500 ML IV STA (20:14)
--- NOTE | 2024-05-18 20:19 | XR ---
EXAMINATION TYPE: XR chest 2V DATE OF EXAM: 05/18/2024 8:11 PM COMPARISON: 04/07/2024 CLINICAL INDICATION: Male, 33 years old with history of Chest Pain, TECHNIQUE: XR chest 2V view(s) obtained. FINDINGS: The heart size is normal. The pulmonary vasculature is normal. There is a new infiltrate within the lingula. Correlate for pneumonia. Follow-up is recommended. Previous right base consolidation has resolved. IMPRESSION: 1. New mild lingular infiltrate. Correlate for pneumonia. Follow-up to clearing is recommended. [facility], , 05/18/2024 8:17 PM
[2024-05-18 20:24] LABS: ALT 20 U/L (4-49); AST 28 U/L (17-59); African American GFR (CKD) >90 (>60 ml/min/1.73 sqM); Albumin 4.1 g/dL (3.5-5.0); Alkaline Phosphatase 69 U/L (38-126); Anion Gap 12 mmol/L; Blood Urea Nitrogen 11 mg/dL (9-20); Calcium 9.2 mg/dL (8.4-10.2); Carbon Dioxide 20 mmol/L (22-30); Chloride 107 mmol/L (98-107); Glucose 91 mg/dL (74-99); Magnesium 1.8 mg/dL (1.6-2.3); Non-African American GFR(CKD) >90 (>60 ml/min/1.73 sqM); Potassium 4.2 mmol/L (3.5-5.1); Sodium 139 mmol/L (137-145); Total Bilirubin 0.3 mg/dL (0.2-1.3)
[2024-05-18 20:25] LABS: Partial Thromboplastin Time 35.6 sec (22.0-30.0); Prothrombin Time 10.8 sec (10.0-12.5)
[2024-05-18] MEDS: DEXAMETHASONE SOD PHOSPHATE 10 MG/ML 1 ML VIAL IV STA (21:16)
--- NOTE | 2024-05-18 21:33 | ED ---
Chest Pain HPI - General Chief Complaint: Chest Pain Stated Complaint: Chest pain Time Seen by Provider: 05/18/24 19:47 Source: patient Mode of arrival: wheelchair Limitations: no limitations - History of Present Illness Initial Comments: 33-year-old male presenting with chief complaint of chest pain. Pain is located on the left side of his chest and radiates to his arm and back. Gets worse with deep breaths and coughing. Started on Sunday and has been steadily getting worse. It is a sharp pain. He had pneumonia back in April and has had a cough since then, no recent changes. No fever. Some shortness of breath. No lower extremity swelling. No recent surgery or long travel. No history of blood clots. No nausea vomiting or diarrhea. No abdominal pain. - Related Data Home Medications Medication Instructions Recorded Confirmed Dextroamphetamine/Amphetamine 10 mg PO BID@0800,1400 02/07/24 02/07/24 [Adderall] Sertraline [Zoloft] 100 mg PO DAILY 02/07/24 02/07/24 Previous Rx's Medication Instructions Recorded Ibuprofen [Motrin] 600 mg PO Q8HR PRN #20 tab 02/07/24 Amoxic-Pot Clav 875-125Mg 1 tab PO BID 10 Days #20 tab 04/07/24 [Augmentin 875-125] Doxycycline [Vibramycin] 100 mg PO BID 7 Days #14 capsule 05/18/24 Allergies Allergy/AdvReac Type Severity Reaction Status Date / Time No Known Allergies Allergy Verified 05/18/24 19:37 Review of Systems ROS Statement: Those systems with pertinent positive or pertinent negative responses have been documented in the HPI. ROS Other: All systems not noted in ROS Statement are negative. Past Medical History Past Medical History: Asthma, GERD/Reflux History of Any Multi-Drug Resistant Organisms: MRSA Date of last positivie culture/infection: 11/19/15 MDRO Source:: right axilla Past Surgical History: Adenoidectomy, Orthopedic Surgery, Tonsillectomy Additional Past Surgical History / Comment(s): RIGHT KNEE Past Psychological History: Anxiety, Bipolar, Depression Smoking Status: Vaper Past Alcohol Use History: None Reported Past Drug Use History: None Reported General Exam Limitations: no limitations General appearance: alert, in no apparent distress Head exam: Present: atraumatic, normocephalic, normal inspection Eye exam: Present: normal appearance, EOMI Neck exam: Present: normal inspection. Absent: meningismus Respiratory exam: Present: normal lung sounds bilaterally, chest wall tenderness. Absent: respiratory distress, wheezes, rales, rhonchi, stridor Cardiovascular Exam: Present: regular rate, normal rhythm, normal heart sounds. Absent: systolic murmur, diastolic murmur, rubs, gallop, clicks Extremities exam: Absent: pedal edema Neurological exam: Present: alert, oriented X3 Psychiatric exam: Present: normal affect, normal mood Skin exam: Present: warm, dry Course Vital Signs 05/18/24 05/18/24 19:36 21:42 Temperature 99.1 F Pulse Rate 94 69 Respiratory 20 16 Rate Blood Pressure 124/91 122/86 O2 Sat by Pulse 97 98 Oximetry Chest Pain MDM - [facility] EKG shows sinus rhythm ventricular rate 85. AR interval 128. QRS 101. QT 343. QTc 385. No ST deviation. Was pt. sent in by a medical professional or institution (, PA, SENIOR CONTROLS TECHNICIAN, urgent care, hospital, or [facility]...) When possible be specific @ -No Did you speak to anyone other than the patient for history (EMS, parent, family, police, friend...)? What history was obtained from this source @ -No Did you review nursing and triage notes (agree or disagree)? Why? @ -I reviewed and agree with nursing and triage notes Were old charts reviewed (outside hosp., previous admission, EMS record, old EKG, old radiological studies, urgent care reports/EKG's, [facility] records)? Report findings @ -No old charts were reviewed Differential Diagnosis (chest pain, altered mental status, abdominal pain women, abdominal pain men, vaginal bleeding, weakness, fever, dyspnea, syncope, headache, dizziness, GI bleed, back pain, seizure, CVA, palpatations, mental health, musculoskeletal)? @ -[facility] Differential Chest Pain: Stable Angina, Unstable Angina, STEMI, NSTEMI Aortic Dissection, Pneumothorax, Musculoskeletal, Esophageal Spasm GERD, Cholecystitis, Pancreatitis, Zoster This is not meant to be an all-inclusive list. EKG interpreted by me (3pts min.). @ -As above X-rays interpreted by me (1pt min.). @ -Chest x-ray shows new mild lingular infiltrate. Correlate for pneumonia. CT interpreted by me (1pt min.). @ -None done U/S interpreted by me (1pt. min.). @ -None done What testing was considered but not performed or refused? (CT, X-rays, U/S, labs)? Why? @ -None What meds were considered but not given or refused? Why? @ -None Did you discuss the management of the patient with other professionals (professionals i.e. Dr., PA, SENIOR CONTROLS TECHNICIAN, lab, RT, psych nurse, social work professor, hospitality job titles, teacher, real estate utilization officer, case monitor)? Give summary @ -No Was smoking cessation discussed for >3mins.? @ -No Was critical care preformed (if so, how long)? @ -No Were there social determinants of health that impacted care today? How? (Homelessness, low income, unemployed, alcoholism, drug addiction, tra nsportation, low edu. Level, literacy, decrease access to med. care, [facility], rehab)? @ -No Was there de-escalation of care discussed even if they declined (Discuss DNR or withdrawal of care, Hospice)? DNR status @ -No What co-morbidities impacted this encounter? (DM, HTN, Smoking, COPD, CAD, Cancer, CVA, ARF, Chemo, Hep., AIDS, mental health diagnosis, sleep apnea, morbid obesity)? @ -None Was patient admitted / discharged? Hospital course, mention meds given and route, prescriptions, significant lab abnormalities, going to OR and other pertinent info. @ -33-year-old male presenting with chief complaint of chest pain. Admits to shortness of breath. History and physical examination are conducted. No leukocytosis or anemia. Troponin and D-dimer are WNL. Chest x-ray shows evidence of new lingular infiltrate. Patient will be treated for pneumonia with doxycycline. Given Decadron for pneumonia and pain, and Toradol for pain. Patient is educated on today's findings and treatment plan. Follow-up with PCP. Report back to ER with any new or worsening symptoms. Discussed return parameters and answered all questions. Patient conveyed verbal understanding and agreed to the plan. I discussed this case in detail with my attending Dr. Escobedo Undiagnosed new problem with uncertain prognosis? @ -No Drug Therapy requiring intensive monitoring for toxicity (Heparin, Nitro, Insuli n, Cardizem)? @ -No Were any procedures done? @ -No Diagnosis/symptom? @ -Pneumonia Acute, or Chronic, or Acute on Chronic? @ -Acute Uncomplicated (without systemic symptoms) or Complicated (systemic symptoms)? @ -Uncomplicated Side effects of treatment? @ -No Exacerbation, Progression, or Severe Exacerbation? @ -No Poses a threat to life or bodily function? How? (Chest pain, [place], [place], pneumonia, PE, COPD, DKA, ARF, appy, cholecystitis, CVA, Diverticulitis, Homicidal, Suicidal, threat to staff... and all critical care pts) @ -Low likelihood at this time. There is start with any infection if not treated properly Disposition Clinical Impression: Pneumonia Disposition: HOME SELF-CARE Condition: Good Instructions (If sedation given, give patient instructions): Bacterial Pneumonia (ED) Additional Instructions: Follow-up with PCP. Report back to ER with any new or worsening symptoms. Take medication as prescribed. Prescriptions: Doxycycline [Vibramycin] 100 mg PO BID 7 Days #14 capsule Is patient prescribed a controlled substance at d/c from ED?: No Referrals: Moises Fierro DO [Primary Care Provider] - 1-2 days Time of Disposition: 21:34
[2024-05-18] MEDS: DOXYCYCLINE 100 MG CAP PO STA (21:39)
[2024-05-18 21:43] VITALS: BP 122/86; PULSE 69; RESP 16
== END 2024-05-18 21:48 | disposition home or self-care (01) ==
LOC: EC 19:29
DX: J18.9 Pneumonia, unspecified organism (principal); F17.290 Nicotine dependence, other tobacco product, uncomplicated
CPT/HCPCS: 36415; 93005; 85379; 80053; 83735; 84484; 85025; 85610; 85730; 71046; 99285; 96374; 96375; 96361; J1100; J1885

== ENCOUNTER → 2024-07-23 | Outpatient (CLI) | payer BC ==
[2024-07-23 13:39] VITALS: BP 144/91; PULSE 88; RESP 16; TEMP 98.3
--- NOTE | 2024-07-23 13:55 | P.PROGSL ---
Subjective DATE: 07/23/2024 FOLLOW UP VISIT. 33-year-old gentleman have been reevaluated in sleep center for possible obstructive sleep apnea hypopnea syndrome. I saw patient in September 2021, at that time he was recommended to proceed with home sleep apnea test but for different reasons test was not done. Patient continued to snore, wakes up from sleep, may feel some tiredness during the day. . [place] sleepiness scale is 3. MEDICATIONS:1. Adderall 20 mg twice a day 2. Zoloft During physical exam: GENERAL: A pleasant patient without any distress. VITAL SIGNS: Please see below, weight 302 pounds, BMI 38.7, patient increased weight on 19 pounds comparing with previous visit. HEENT: PERRLA, EOMI, extremely low position of soft palate Mallampati 34. NECK: Supple. No JVD. LUNGS: Clear to percussion and to auscultation. Good air exchange. No wheezing or rhonchi. HEART: S1, S2 regular. ABDOMEN: Soft and nontender. EXTREMITIES: No clubbing or cyanosis. SLITTER SERVICE AND SETTER: Awake, alert, and oriented x3. No focal deficit. Impressions: 1. Snoring, awakenings from sleep, low position of soft palate Mallampati 34. Obstructive sleep apnea hypopnea syndrome 2. Obesity, BMI 38.7. 3. ADHD. 4. History of sleep talking. 5. History of aggressiveness episodes in the past. 6. History of asthma in the past. 7. Post tonsillectomy. 8. Status post left knee surgery. Plan: 1. Home sleep apnea test for evaluation of patient breathing during the sleep. 2. Sleep hygiene with regular time in bed for at least 8 hours. 3. Losing weight 4. Precautions related to driving. No driving if feel any sleepiness. Patient is aware about civil and criminal liability for unsafe driving, promised to follow recommendations. 5. Following plan after reading sleep study. Thank you very much for allowing me to participate in the management of your patient. Chago Hansen MD, PhD, FAASM. Diplomat of [place] [employer], Sleep Medicine Board by [place] [employer] [facility] [place] cc: Moises Fierro DO Objective - Vital Signs Vital Signs: Vital Signs Temp 98.3 F 07/23/24 13:38 Pulse 88 07/23/24 13:38 Resp 16 07/23/24 13:38 BP 144/91 07/23/24 13:38 Pulse Ox 97 07/23/24 13:38 FiO2 Home Medications: Home Medications Medication Instructions Recorded Confirmed Type Dextroamphetamine/Amphetamine 20 mg PO BID@0800,1400 02/07/24 02/07/24 History [Adderall] Ibuprofen [Motrin] 600 mg PO Q8HR PRN #20 tab 02/07/24 Rx Sertraline [Zoloft] 100 mg PO DAILY 02/07/24 07/23/24 History Amoxic-Pot Clav 875-125Mg 1 tab PO BID 10 Days #20 tab 04/07/24 Rx [Augmentin 875-125] Doxycycline [Vibramycin] 100 mg PO BID 7 Days #14 capsule 05/18/24 Rx
== END ==
LOC: 3 N SLEEP 13:14
PROVIDERS: ATTEND Internal Medicine
DX: G47.33 Obstructive sleep apnea (adult) (pediatric) (principal); E66.9 Obesity, unspecified; F90.9 Attention-deficit hyperactivity disorder, unspecified type; Z68.38 Body mass index [BMI] 38.0-38.9, adult; Z87.09 Personal history of other diseases of the respiratory system; Z90.89 Acquired absence of other organs; Z96.652 Presence of left artificial knee joint; Z87.891 Personal history of nicotine dependence
CPT/HCPCS: 99212

== ENCOUNTER → 2024-08-19 | Outpatient (CLI) | payer BC ==
--- NOTE | 2024-08-20 10:15 | CA ---
Transthoracic Echo Report Name: Jacobo Koehler Age: 33 Gender: M : 1990 Exam Date: 08/19/2024 13:33 Exam Location: [facility] Ht (in): 75 Wt (lb): 300 Ordering Physician: Moises Fierro DO Attending/Referring Phys: Moises Fierro DO Manager User Experience Eliu Lorenzo RDCS Procedure CPT: Indications: R07.9 CHEST PAIN, UNSPECIFIED Cardiac Hx: Technical Quality: Good Contrast 1: Total Dose (mL): Contrast 2: Total Dose (mL): MEASUREMENTS (Male / Female) Normal Values 2D ECHO LV Diastolic Diameter PLAX 4.6 cm 4.2 - 5.9 / 3.9 - 5.3 cm LV Systolic Diameter PLAX 3.1 cm IVS Diastolic Thickness 0.9 cm 0.6 - 1.0 / 0.6 - 0.9 cm LVPW Diastolic Thickness 0.9 cm 0.6 - 1.0 / 0.6 - 0.9 cm LV Relative Wall Thickness 0.4 RV Internal Dim ED PLAX 3.3 cm LVOT Diameter 2.0 cm LA Systolic Diameter LX 3.5 cm 3.0 - 4.0 / 2.7 - 3.8 cm LV Diastolic Volume MOD BP 168.4 cm??? 67 - 155 / 56 - 104 cm??? LV Systolic Volume MOD BP 78.3 cm??? 22 - 58 / 19 - 49 cm??? LV Ejection Fraction MOD BP 53.5 % >= 55 % LV Diastolic Volume MOD 4C 157.1 cm??? LV Systolic Volume MOD 4C 72.5 cm??? LV Ejection Fraction MOD 4C 53.9 % LV Diastolic Length 4C 9.5 cm LV Systolic Length 4C 7.7 cm LV Diastolic Volume MOD 2C 172.7 cm??? LV Systolic Volume MOD 2C 81.9 cm??? LV Ejection Fraction MOD 2C 52.5 % LV Diastolic Length 2C 9.1 cm LV Systolic Length 2C 7.4 cm LA Volume 52.9 cm??? 18 - 58 / 22 - 52 cm??? LA Volume Index 19.4 cm???/m??? 16 - 28 cm???/m??? DOPPLER MV Area PHT 3.3 cm??? Mitral E Point Velocity 64.5 cm/s Mitral A Point Velocity 37.1 cm/s Mitral E to A Ratio 1.7 MV Deceleration Time 233.0 ms FINDINGS Left Ventricle Left ventricular ejection fraction is estimated at 55-60%. Mildly increased left ventricular diastolic volume. Moderately increased left ventricular systolic volume. No obvious regional wall motion abnormalities. Right Ventricle Normal right ventricular size with normal function. Unable to estimate the right ventricular systolic pressure. Right Atrium Normal right atrial size. Left Atrium Normal left atrial size. Mitral Valve Mitral annular calcification. No mitral stenosis. Trace mitral regurgitation. Aortic Valve Trileaflet aortic valve. No aortic valve stenosis or regurgitation. Tricuspid Valve Structurally normal tricuspid valve. No tricuspid stenosis. No tricuspid regurgitation. Pulmonic Valve Structurally normal pulmonic valve. No pulmonic stenosis. No pulmonic regurgitation. Pericardium No pericardial effusion. Aorta Normal size aortic root and proximal ascending aorta. CONCLUSIONS LVEF 55 to 60% No obvious regional wall motion abnormality No obvious valvular dysfunction No significant chamber size abnormality Previewed by: Dr Khris Enrique (Electronically Signed) Final Date: 20 August 2024 10:15
== END | disposition home or self-care (01) ==
LOC: RADECHMAIN 13:15
PROVIDERS: ATTEND Family Medicine
DX: I34.0 Nonrheumatic mitral (valve) insufficiency (principal); I34.81 Nonrheumatic mitral (valve) annulus calcification
CPT/HCPCS: 93306